=== PATIENT | female | born 1975 | race Caucasian/White ===

== ENCOUNTER 2016-04-03 17:41 | Inpatient (IN) | payer OTHER ==
[2016-04-03] MEDS ORDERED: PROMETHAZINE HCL 25 MG/ML VIAL IVP ONE (18:12)
[2016-04-03] MEDS ORDERED: DEXAMETHASONE 10 MG/ML VIAL IVP ONE (18:12)
[2016-04-03] MEDS ORDERED: KETOROLAC 30 MG/1 ML SDV IVP ONE (18:12)
[2016-04-03] MEDS ORDERED: DIHYDROERGOTAMINE 1 MG/ML AMP IVP ONE (18:13)
[2016-04-03] MEDS ORDERED: NS 1,000 ML IV ONE (18:13)
--- NOTE | 2016-04-03 18:16 | EDPHY ---
H & P Stated Complaint: Migraine - Personal History LMP (Females 10-55): Irregular Current Tetanus/Diphtheria Vaccine: Unsure Current Tetanus Diphtheria and Acellular Pertussis (TDAP): Unsure Tetanus Vaccine Date: <10 years - Medical/Surgical History Hx Asthma: No Hx Chronic Respiratory Disease: No Hx Diabetes: No Hx Cardiac Disease: No Hx Renal Disease: No Hx Cirrhosis: No Hx Alcoholism: No Hx HIV/AIDS: No Hx Splenectomy or Spleen Trauma: No Other PMH: MS;Migraines; depression, - Social History Smoking Status: Never smoked Time Seen by Provider: 04/03/16 18:01 HPI/ROS: CHIEF COMPLAINT: Migraine headache x1 week HISTORY OF PRESENT ILLNESS: 40-year-old female history of multiple sclerosis, chronic migraine headache, seen emergency department previously for similar, complaining of 1 week of intractable migraine headache. Has taken multiple doses of DHE, opiate analgesic, saw her neurologist 4 days ago received Botox injection, still with no relief of symptoms. Feels like her usual headache. Not thunderclap. Not worst headache of life. States that she typically gets relief with DHE which was previously unavailable last emergency department visit in January 2016. She would like to receive DHE and be admitted for further DHE the via IV. Currently not on Depakote PRIMARY CARE PROVIDER:primary neurologist Dr. Lisandra Miranda, [place] REVIEW OF SYSTEMS: A ten point review of systems was performed and is negative with the exception of the items mentioned in the HPI PAST MEDICAL & SURGICAL HISTORY: MS. Migraine. Depression. SOCIAL HISTORY: . Nonsmoker. No drug use. PHYSICAL EXAM (Prior to examination, patient consented to physical exam, hands were washed and my usual and customary physical exam procedures followed) 1) GENERAL: Well-developed, well-nourished, alert and oriented. Appears uncomfortable, sitting in a dark room with her eyes covered, crying 2) HEAD: Normocephalic, atraumatic 3) HEENT: Pupils equal, round, reactive to light bilaterally. Sclera anicteric. 4) NECK: Full range of motion, no meningeal signs. 5) LUNGS: Clear auscultation bilaterally, no wheezes, no rhonchi, no retractions. 6) HEART: Regular rate and rhythm, no murmur, no heave, no gallop. 7) ABDOMEN: No guarding, no rebound, no focal tenderness, 8) MUSCULOSKELETAL: Moving all extremities, no focal areas of tenderness, no obvious trauma. No peripheral edema or discoloration. 9) BACK: no midline vertebral tenderness, no fluctuance, no step-off, no obvious trauma, no visual or palpable abnormality. 10) SKIN: No rash, no petechiae. 11)NEURO: Awake, alert, and oriented to person, place and time. Answers questions appropriately. There were no obvious focal neurologic abnormalities. No cerebellar dysfunction. Normal steady gait. Upper and lower extremities bilaterally with strength 5 / 5, reflexes 2+. DIFFERENTIAL DIAGNOSIS: In no particular order, including but not limited to subarachnoid hemorrhage, migraine headache, tension headache and infectious causes such as meningitis, pharyngitis and sinusitis. T (lEma Faye) Constitutional: Initial Vital Signs Temperature (C) 37.1 C 04/03/16 17:45 Heart Rate 95 04/03/16 17:45 Respiratory Rate 14 04/03/16 17:45 Blood Pressure 133/64 H 04/03/16 17:45 O2 Sat (%) 96 04/03/16 17:45 O2 Delivery Mode Room Air Allergies/Adverse Reactions: metoclopramide HCl [From Reglan] Allergy (Verified 01/21/16 14:25) Sulfa (Sulfonamide Antibiotics) Allergy (Verified 01/21/16 14:25) Home Medications: Medication Instructions Recorded Baclofen [Baclofen 10 mg (*)] 10 mg PO TID 04/17/14 Botulinum Toxin Type A [Botox] 100 unit INJ .[id number] 04/17/14 Dihydroergotamine Mesylate 1 spray EACHNARE PRN PRN 04/17/14 [MIGRANAL] Gabapentin 600 mg PO TID 04/17/14 Topiramate [Topamax] 250 mg PO HS 04/17/14 tiZANidine HCL [Zanaflex] 4 mg PO HS 04/17/14 Cyanocobalamin [Vitamin B12 (*)] 1,000 mcg PO DAILY 03/16/15 Herbals/Supplements -Info Only 1 ea PO DAILY 03/16/15 Norethindrone AC-Eth Estradiol 1 tab PO DAILY 03/16/15 [Norethind-Eth Estrad 1-0.02 mg] Promethazine HCl 25 - 50 mg PO PRN PRN 03/16/15 Sertraline HCl [Zoloft 100mg (*)] 200 mg PO DAILY 03/16/15 Zolpidem Tartrate [Ambien 5MG (*)] 5 mg PO HS PRN 03/16/15 HYDROcodone/APAP 10/325 [Bruni 1 - 2 each PO Q4-6PRN PRN #20 tab 01/21/16 10/325] LORazepam [Ativan 1 mg (RX)] 1 mg PO TID PRN #14 tab 01/21/16 Divalproex ER [Depakote ER 250 MG 250 mg PO DAILY PRN 04/03/16 (*)] valACYclovir [Valtrex (*)] 500 mg PO DAILY 04/03/16 Medical Decision Making ED Course/Re-evaluation: 6:15 p.m.: Nonfocal neurologic exam. Old medical records reviewed. Longstanding history of migraine headaches including admission for intractable pain/status migrainosus. She specifically requests DHE. 7:10 p.m.: Re-evaluation. Complaining of continued pain after multiple medications. Discussed IV opiates which he is agreeable with. She and agree that they like to be admitted for continuous IV DHE therapy similar to February 2015 741 pm: Consultation with hospitalist Dr Temple who will admit (Elma Faye) Other Provider: The patient was evaluated and managed by the physician hospital medical assistant. I have reviewed this chart and I agree with the findings and plan of care as documented , as indicated by my signature. I am the secondary supervising physician. ( Danielle Telles) - Data Points Laboratory Results: Laboratory Results 04/03/16 17:58 04/03/16 17:58 Medications Given: Discontinued Medications Dexamethasone (Decadron Injection) 10 mg IVP EDNOW ONE Stop: 04/03/16 18:13 Last Admin: 04/03/16 18:36 Dose: 10 mg Dihydroergotamine Mesylate (Dhe) 1 mg IVP EDNOW ONE Stop: 04/03/16 18:14 Last Admin: 04/03/16 18:37 Dose: 1 mg Diphenhydramine HCl (Benadryl Injection) 25 mg IVP EDNOW ONE Stop: 04/03/16 18:43 Last Admin: 04/03/16 18:45 Dose: 25 mg Hydromorphone HCl (Dilaudid) 1 mg IVP EDNOW ONE Stop: 04/03/16 19:07 Last Admin: 04/03/16 19:27 Dose: 1 mg Sodium Chloride (Ns) 1,000 mls @ 0 mls/hr IV ONCE ONE PRN Reason: Wide Open Stop: 04/03/16 18:14 Last Admin: 04/03/16 18:38 Dose: 1,000 mls Ketorolac Tromethamine (Toradol) 30 mg IVP EDNOW ONE Stop: 04/03/16 18:13 Last Admin: 04/03/16 18:37 Dose: 30 mg Lorazepam (Ativan Injection) 1 mg IVP EDNOW ONE Stop: 04/03/16 18:29 Last Admin: 04/03/16 18:38 Dose: 1 mg Promethazine HCl (Phenergan Injection) 25 mg IVP EDNOW ONE Stop: 04/03/16 18:13 Last Admin: 04/03/16 18:37 Dose: 25 mg Departure - Departure Disposition: [facility] Acute Clinical Impression: Headache, migraine Condition: Fair
[2016-04-03 18:17] LABS: % IMMATURE GRANULYOCYTES 0.3 % (0.0-1.1); ABSOLUTE IMMATURE GRANULOCYTES 0.02 10^3/uL (0.00-0.10); ADD DIFF? NO; ADD MORPH? NO; ADD SCAN? NO; ATYPICAL LYMPHOCYTE FLAG 0 (0-99); FRAGMENT RBC FLAG 0 (0-99); HEMATOCRIT 42.4 % (38.0-47.0); HEMOGLOBIN 14.8 g/dL (12.6-16.3); LEFT SHIFT FLG 0 (0-99); LIPEMIA HEMOLYSIS FLAG 90 (0-99); MEAN CELL HEMOGLOBIN 30.3 pg (27.9-34.1); MEAN CELL HEMOGLOBIN CONCENTR. 34.9 g/dL (32.4-36.7); MEAN CELL VOLUME 86.7 fL (81.5-99.8); MEAN PLATELET VOLUME 10.4 fL (8.7-11.7); PLATELET CLUMPS FLAG 10 (0-99); PLATELET COUNT 252 10^3/uL (150-400); RED BLOOD CELL COUNT 4.89 10^6/uL (4.18-5.33); RED CELL DISTRIBUTION WIDTH 13.3 % (11.5-15.2)
[2016-04-03 18:22] LABS: ANION GAP 12 mEq/L (8-16); CALCIUM 8.9 mg/dL (8.5-10.4); CARBON DIOXIDE 19 mEq/l (22-31); CHLORIDE 111 mEq/L (97-110); CREATININE 0.7 mg/dL (0.6-1.0); GLOMERULAR FILTRATION RATE > 60; GLUCOSE 107 mg/dL (70-100); POTASSIUM 3.9 mEq/L (3.5-5.2); SODIUM 142 mEq/L (134-144)
[2016-04-03] MEDS ORDERED: LORazepam 2 MG/ML INJ IVP ONE (18:28)
[2016-04-03] MEDS ORDERED: LORazepam 2 MG/ML INJ ONE (18:30)
[2016-04-03] MEDS ORDERED: HYDROmorphONE/DILAUDID 1 MG/ML SYR IVP ONE (19:06)
[2016-04-03] MEDS ORDERED: ACETAMINOPHEN 325 MG TAB PO PRN (20:08)
[2016-04-03] MEDS ORDERED: ZOLPIDEM TARTRATE 5 MG TAB PO PRN (20:09)
[2016-04-03] MEDS ORDERED: DIVALPROEX ER 250 MG TAB PO PRN (20:09)
[2016-04-03] MEDS ORDERED: oxyCODONE IR 5 MG TAB PO PRN (20:09)
[2016-04-03] MEDS ORDERED: HYDROmorphONE/DILAUDID 2 MG/ML SYR IVP PRN (20:09)
--- NOTE | 2016-04-03 20:42 | GHP ---
[f rep st] HISTORY AND PHYSICAL DATE OF ADMISSION: 04/03/2016 CHIEF COMPLAINT: Headache. HISTORY OF PRESENT ILLNESS: This is a 40-year-old female with history of multiple sclerosis, chronic migraine headaches, who has been hospitalized in the past for intractable migraine. The patient is followed by Dr. Miranda, who is a neurologist in [place]. The patient tells me ngoc t over the past week she has had a migraine headache that has waxed and waned. She came in today sin ce the headache has worsened and described it as 8.5 out of 10 on initial presentation to the emergen cy department this evening. The pain is described as sharp and in her neck, posterior head and moves anteriorly. In the emergency department, she was given dihydroergotamine, dexamethasone, Dilaudid, Phenergan, and Toradol, which decreased the headache to a 3/10. The headache is associated with phot o and phonophobia. Some smells make it worse as well. She says her leg feels a little weak. PAST MEDICAL HISTORY: 1. Migraine headaches, with hospitalization in February 2015 for intractable migraine that responded to DHE treatment. 2. Multiple sclerosis. 3. Depression. PAST SURGICAL HISTORY: Right medial nerve reconstruction. MEDICATIONS: Reviewed. Refer to [facility] for details. ALLERGIES: Sulfa antibiotics and Reglan. SOCIAL HISTORY: The patient is , has 3 kids and lives in [place] [place]. She denies any alcoh ol, tobacco or illicit drug use. FAMILY HISTORY: Reviewed and noncontributory. Father had a massive stroke in his late 50s. REVIEW OF SYSTEMS: Comprehensive 10-point review of systems was done and was negative except for as mentioned in the HPI. PHYSICAL EXAM: VITAL SIGNS: Blood pressure 132/69, pulse 86, respiratory rate 16, O2 saturation 94% on room air. Temperature afebrile. GENERAL: No acute distress. HEENT: Head is normocephalic, at raumatic. Eyes are PERRLA. Sclerae anicteric. Mouth: Moist mucous membranes. NECK: Supple. No meningismus. CARDIOVASCULAR: S1, S2. No murmurs, rubs, clicks, gallops, or JVD. No lower extremit y edema. PULMONARY: Lungs are clear. No wheezes, rales, or rhonchi. ABDOMEN: Soft, nontender, no ndistended. No guarding or rebound tenderness. Normoactive bowel sounds. EXTREMITIES: No clubbing or cyanosis. NEURO: Cranial nerves 2-12 grossly intact. There is no pronator drift. Muscle stren gth 5/5 bilateral upper extremity flexion, extension, diesel technician strength. Muscle strength 5/5 bilateral l ower extremity flexion, extension at the hip and at the foot. DTRs are 2+ and symmetric at the aranda la. SKIN: Clear. No rashes. DIAGNOSTICS: WBC is 5.78, hemoglobin 14.8, hematocrit 42.4, platelets 252. Sodium 142, potassium 3. 9, chloride 111, CO2 of 19, BUN 7, creatinine 0.7, glucose 107, beta HCG negative. Valproic acid was undetectable. ASSESSMENT AND PLAN: This is a 40-year-old female with history of multiple sclerosis presenting with intractable migraine/status migrainosus. PLAN: The patient will be admitted to the hospital where she will be treated supportively for her he adache with IV fluids, antiemetics, IV pain medications. I did try to contact her treating neurologi st, Dr. Lisandra Miranda, and have left a message for her. I will plan on continuing the dihydroergotamine at a dose of 1 mg IV q.8 since this appears to have worked for her in the past. I will have our rona rologist consult in the morning. I suspect that the patient's headache will require hospitalization through 2 midnights; and therefore , will admit her to inpatient status. She is at low risk for VTE and will recommend SCDs and early a mbulation. /[id number]/MODL
[2016-04-03] MEDS: TOPIRAMATE 100 MG TAB PO SCH (21:32)
[2016-04-03] MEDS: PROMETHAZINE HCL 25 MG/ML VIAL IVP PRN (21:32)
[2016-04-03] MEDS: GABAPENTIN 300 MG CAP PO SCH (21:37)
[2016-04-03] MEDS: BACLOFEN 10 MG TAB PO SCH (21:37)
[2016-04-03] MEDS: D5W 1/2 NS W/ 20 KCl/L 1,000 ML IV SCH (22:28)
[2016-04-03] MEDS: LORazepam 1 MG TAB PO PRN (22:28)
[2016-04-03] MEDS: KETOROLAC 30 MG/1 ML SDV IVP PRN (22:28)
[2016-04-03 22:49] LABS: COLOR PALE YELLOW; LEUKOCYTE ESTERASE,URINE NEGATIVE (NEGATIVE); NITRITE,URINE NEGATIVE (NEGATIVE)
[2016-04-04] MEDS: PROMETHAZINE HCL 25 MG/ML VIAL IVP PRN ×3 (02:02→18:31)
[2016-04-04] MEDS: DIHYDROERGOTAMINE 1 MG/ML AMP IVP SCH ×3 (02:11→18:44)
[2016-04-04] MEDS: LORazepam 1 MG TAB PO PRN ×2 (04:46→20:21)
[2016-04-04] MEDS: GABAPENTIN 300 MG CAP PO SCH ×3 (09:09→20:22)
[2016-04-04] MEDS: SERTRALINE HCL 100 MG TAB PO SCH (09:09)
[2016-04-04] MEDS: BACLOFEN 10 MG TAB PO SCH ×3 (09:09→20:22)
[2016-04-04] MEDS: valACYclovir 500 MG TAB PO SCH (09:09)
[2016-04-04] MEDS: D5W 1/2 NS W/ 20 KCl/L 1,000 ML IV SCH (09:13)
[2016-04-04] MEDS: NORETHINDRONE AC ETH ESTRADIOL PO SCH (09:19)
[2016-04-04 09:35] VITALS: RESP 16
[2016-04-04] MEDS: KETOROLAC 30 MG/1 ML SDV IVP PRN ×2 (10:38→18:31)
[2016-04-04] MEDS: ONDANSETRON 4 MG/2 ML VIAL IVP PRN (11:25)
--- NOTE | 2016-04-04 12:35 | HOSPPROG ---
Hospitalist Progress Note Assessment/Plan: 40 yo with h/o migraine headaches and MS; presents with migraine headache. Has responded to DHE in the past. Patient new to me today -migraine headache; improving on DHE, now 4-5/10 for 8-12/27 -MS: stable Subjective: headache is improving. No nausea; cannot sleep; Objective: Vital Signs Temp Pulse Resp BP Pulse Ox 36.6 C 70 16 126/67 H 99 04/04/16 09:10 04/04/16 09:10 04/04/16 09:10 04/04/16 09:10 04/04/16 09:10 04/03/16 04/04/16 04/05/16 05:59 05:59 05:59 Intake Total 1999 Balance 1999 - Time Spent With Patient Time Spent with Patient: greater than 35 minutes Time Spent with Patient: Greater than 35 minutes spent on this patients care, greater than 50% of time spent counseling, educating, and coordinating care regarding the above mentioned plan. - Physical Exam Eyes: PERRL Ears, Nose, Mouth, Throat: moist mucous membranes, hearing normal Cardiovascular: regular rate and rhythym, no murmur, rub, or gallop Respiratory: no respiratory distress, no rales or rhonchi, clear to auscultation Genitourinary: no bladder fullness Skin: warm Musculoskeletal: full muscle strength Neurologic: AAOx3, CN II-XII Intact, other (no focal weakness; photophobia present, cannot sleep) Psychiatric: interacting appropriately ICD10 Worksheet Patient Problems: Problems Problem Status Diagnosed Headache, migraine Acute Migraine headache Acute
[2016-04-04] MEDS ORDERED: ZOLPIDEM TARTRATE 5 MG TAB PO PRN (12:38)
--- NOTE | 2016-04-04 13:58 | GCON ---
[f rep st] CONSULTATION REFERRING PHYSICIAN: Anjum Temple DO HISTORY OF PRESENT ILLNESS: The patient is a 40-year-old woman who has a prior history of multiple s clerosis and used to be followed in this practice for many years by Dr. Mccarty. She then saw Dr. Leonides lange about 1 year ago, and has subsequently been under the care of Dr. Lisandra Miranda over the last year. The patient has relapsing remitting multiple sclerosis and has failed multiple therapies or had poor tolerance, and is currently on Lemtrada. She has just initiated this. She says she is under rather high stress right now and has been dealing with headaches. She says for the last 10 years she has avendano d some headache every day and can only imagine just a few days during that time where she has not had a headache. Her baseline headache can be 2 or 3/10. However, she has had significant flare-up of h eadache over the last several weeks, and has reported to me hospitalizations in the past with IV DHE and high success by using a combination of Phenergan, Toradol, and Benadryl. She specifically was ad mitted because of the intractable nature of her headaches. She says she has been speaking to Dr. Doss on as well, and they were working through antidepressant medications, but the patient lives here, whi ch is why she came to our facility for the headache problem. In any case, she was admitted last even ing and has been started on DHE, but she has not received any Benadryl dosing, and she wants that antwan y much because of the strong efficacy she has had before. She says she needs her headache to get kartik n to 2 or 3/10 before she will be back to her baseline, and is currently at about 8/10. She denies a ny other new neurologic symptoms. Her multiple sclerosis is significant, but no acute deterioration. PAST MEDICAL HISTORY: As outlined above, and she also has history of depression with the intractable migraine headaches. She has had some occipital nerve blocks to try to help headaches. ALLERGIES: Sulfa, antibiotics, and Reglan. FAMILY HISTORY: Noncontributory, except father had a stroke in his late 50s. She is . She h as 3 children. She denies alcohol, smoking or drug use. REVIEW OF SYSTEMS: Unremarkable, except for that noted above. CURRENT MEDICATIONS: At home, were Valtrex, Botox intermittently for migraine prevention, baclofen, Depakote, Migranal (she is having some trouble getting that, but is supposed to get back on that due to insurance issues), B12, estradiol, lorazepam as needed, hydrocodone as needed, gabapentin 600 mg 3 times a day, Zoloft 200 mg daily, Zanaflex, Ambien, Topamax 250 mg at night. PHYSICAL EXAMINATION: VITAL SIGNS: Blood pressure 126/67, pulse of 70, respirations 16, temperature 36.6. GENERAL: She is well developed, in no acute distress. She is in a dark room. CARDIAC: Reg ular rate and rhythm. No murmur. She is alert, attentive, oriented, and expressing logical concern about her headaches and the frustration over the pain, and just hoping to get relief as soon as possi ble. NEUROLOGIC: Pupils 3 mm and reactive. Extraocular movements are intact. No facial asymmetry. No focal weakness in the upper extremities, although the left upper extremity might have been a lit tle weak relative to the right. Sensation preserved. IMPRESSION: The patient has relapsing remitting multiple sclerosis, which has been recently followed by Dr. Miranda in [place]. The patient recently started the new medication, Lemtrada. The acute hospitalization and the reason for being evaluated today, is related to intractable migraine headach e. She has a chronic daily headache syndrome with no complete headache relief for 10 years and frequ ent exacerbations of headache leading to hospitalizations and needing intravenous therapy with DHE be ing most successful in combination with Toradol, Phenergan, and Benadryl. I am happy to add the [place] dryl 25 mg IV every 8 hours, in addition to the other medications. She will continue the DHE as need ed, up to a maximum of 6 doses per week, and will be able to leave the hospital once her headaches ar e improved to the point where she is back to her baseline. She will then continue her regular follow up with Dr. Miranda. /[id number]/MODL
[2016-04-04] MEDS: TOPIRAMATE 100 MG TAB PO SCH (20:19)
[2016-04-05] MEDS: PROMETHAZINE HCL 25 MG/ML VIAL IVP PRN ×3 (02:55→18:29)
[2016-04-05] MEDS: KETOROLAC 30 MG/1 ML SDV IVP PRN ×3 (02:56→18:30)
[2016-04-05] MEDS: DIHYDROERGOTAMINE 1 MG/ML AMP IVP SCH ×3 (02:56→18:30)
[2016-04-05] MEDS: LORazepam 1 MG TAB PO PRN (03:04)
[2016-04-05] MEDS: ONDANSETRON 4 MG/2 ML VIAL IVP PRN ×3 (03:26→18:56)
[2016-04-05] MEDS: GABAPENTIN 300 MG CAP PO SCH ×3 (08:56→23:55)
[2016-04-05] MEDS: SERTRALINE HCL 100 MG TAB PO SCH (08:56)
[2016-04-05] MEDS: BACLOFEN 10 MG TAB PO SCH ×3 (08:56→23:56)
[2016-04-05] MEDS: valACYclovir 500 MG TAB PO SCH (08:56)
[2016-04-05] MEDS: NORETHINDRONE AC ETH ESTRADIOL PO SCH (09:16)
--- NOTE | 2016-04-05 11:11 | HOSPPROG ---
Hospitalist Progress Note Assessment/Plan: ASSESSMENT/PLAN: # migraine - will continue treatment including DHE 1 mg q.8 hours; discussed with Dr. Bell who is comfortable going over the recommended dosage - continue other supportive care including Toradol, Depakote, topiramate, tizanidine, IV Dilaudid, oral oxycodone, phenergan, benadryl # MS - stable SUBJECTIVE: Tearful, still has a headache; slightly better than yesterday OBJECTIVE: Vitals reviewed Comfortable, no acute distress Objective: Vital Signs Temp Pulse Resp BP Pulse Ox 36.7 C 90 16 115/60 97 04/05/16 08:40 04/05/16 08:40 04/05/16 08:40 04/05/16 08:40 04/05/16 08:40 04/04/16 04/05/16 04/06/16 05:59 05:59 05:59 Intake Total 2000 300 Balance 2000 300 - Time Spent With Patient Time Spent with Patient: greater than 25 minutes Time Spent with Patient: Greater than 25 minutes spent on this patients care, greater than 50% of time spent counseling, educating, and coordinating care regarding the above mentioned plan. ICD10 Worksheet Patient Problems: Problems Problem Status Diagnosed Headache, migraine Acute Migraine headache Acute
[2016-04-05] MEDS ORDERED: METHOCARBAMOL 1,000 MG in NS 50 ML IVP PRN (16:27)
[2016-04-05] MEDS ORDERED: METHOCARBAMOL 1,000 MG in NS 50 ML IV PRN (18:13)
[2016-04-05] MEDS: TOPIRAMATE 100 MG TAB PO SCH (23:55)
[2016-04-06] MEDS: LORazepam 1 MG TAB PO PRN
[2016-04-06 08:45] VITALS: BP 100/52; PULSE 73; TEMP 98.3; O2SAT 99
[2016-04-06] MEDS: KETOROLAC 30 MG/1 ML SDV IVP PRN (09:21)
[2016-04-06] MEDS: GABAPENTIN 300 MG CAP PO SCH (09:22)
[2016-04-06] MEDS: valACYclovir 500 MG TAB PO SCH (09:22)
[2016-04-06] MEDS: BACLOFEN 10 MG TAB PO SCH (09:22)
[2016-04-06] MEDS: SERTRALINE HCL 100 MG TAB PO SCH (09:22)
[2016-04-06] MEDS: NORETHINDRONE AC ETH ESTRADIOL PO SCH (09:23)
--- NOTE | 2016-04-06 09:57 | GDS ---
[f rep st] DISCHARGE SUMMARY DIAGNOSES: 1. Uncontrolled migraine. 2. Multiple sclerosis. HOSPITAL COURSE: A 40-year-old female with long history of migraines with chronic daily headaches, p resents with worsening of her symptoms. She described her pain as 8 to 9/10, persistent on admission . She is on multiple suppressive and abortive therapies at home. She has had success with DHE in e past, thus she was started on this. She received 1 g q.8 for a total of 6 doses of DHE. On discha rge, her pain is down to 4/10. Normally her pain is slightly better than this. She is comfortable w ith being discharged, tolerating food. She has all the medications that she needs at home. She has followup with Dr. Lisandra Miranda. She is considering going to a specialty headache clinic. I discussed this with Dr. Bell on the day of discharge. BILLING: I spent spent less than 30 minutes on the day of discharge coordinating care /[id number]/PABLOL
== END 2016-04-06 13:30 | disposition home or self-care (01) | DRG 103 ==
LOC: F1N 20:50
PROVIDERS: ADMIT Family Medicine; ATTEND Student in an Organized Health Care Education/Training Program
DX: G43.001 Migraine without aura, not intractable, with status migrainosus (principal); G35 Multiple sclerosis; F32.9 Major depressive disorder, single episode, unspecified
CPT/HCPCS: 96374; J1110; J1170; J1885; J2405; J2550; J2800

== ENCOUNTER → 2016-07-05 | Outpatient (CLI) | payer OTHER ==
[~2016-07-05] MED LIST: GADOBUTROL 10 ML VIAL IVP ONE
== END ==
LOC: FIMAGING 14:23
PROVIDERS: ATTEND Psychiatry & Neurology Neurology
DX: G35 Multiple sclerosis (principal)
CPT/HCPCS: A9585

== ENCOUNTER 2016-07-11 09:57 | Emergency (ER) | payer OTHER ==
--- NOTE | 2016-07-11 11:39 | EDPHY ---
H & P Stated Complaint: hx ms/increased l leg and hip pain since monday/may be flare up Time Seen by Provider: 07/11/16 11:38 HPI/ROS: HPI: 41-year-old female presents to emergency department with chief concern left low back and left hip pain that is 9/10 radiates down lateral aspect of left leg almost to the knee, onset suddenly 2 nights ago without known aggravating activity. Denies fever, chills, myalgias, dizziness, shortness of breath, chest pain nausea or vomiting. No urinary symptoms, no flank pain. No incontinence of bowel or bladder. Has had low back pain in the past when she was . Worse with ambulation, better with rest. Taking ibuprofen and [place] that she has at home with some improvement. Has a recent history of bronchial pneumonia from which she is recovering. Has a history of MS. Has been in touch with her neurologist Dr. Lisandra Miranda who put her on a Medrol Dosepak. ROS:10 point review of systems is negative other than as stated in HPI Source: Patient - Personal History LMP (Females 10-55): 22-28 Days Ago Current Tetanus/Diphtheria Vaccine: Yes Tetanus Vaccine Date: <10 years - Medical/Surgical History Hx Asthma: No Hx Chronic Respiratory Disease: No Hx Diabetes: No Hx Cardiac Disease: No Hx Renal Disease: No Hx Cirrhosis: No Hx Alcoholism: No Hx HIV/AIDS: No Hx Splenectomy or Spleen Trauma: No Other PMH: MS;Migraines; depression, - Social History Smoking Status: Never smoked - Physical Exam Exam: Vital signs stable, reviewed by me Constitutional: Alert, calm, cooperative. No acute distress. HEENT: Head normocephalic. PERRLA, EOMI. No pallor or injection. TMs pearly- roy without bulging or retraction. Nasal mucosa pink and moist. Pharynx without redness or evidence of tonsillar exudates. Neck: Supple, nontender. No midline tenderness. Respiratory: Breathing unlabored. Cardiovascular: Heart rate regular. S1-S2. DP/PT pulses 2+ bilaterally. Gastrointestinal: Abdomen soft, nontender. Bowel sounds normoactive x4 quadrants. : No suprapubic tenderness or CVA tenderness. Neuro: Patellar and Achilles DTRs 2+ bilaterally. Strength 5+ in all extremities. No point tenderness to palpation of thoracic or lumbar spine. Left and right paraspinous muscles without tenderness to palpation. No evidence of radiculopathy on straight leg raise bilaterally. Sensation intact to soft and pinprick in all regions of both legs and feet bilaterally. Musculoskeletal: Left hip with the full extension, flexion, full internal rotation, external rotation without significant discomfort. Ambulates without difficulty. Constitutional: Initial Vital Signs Temperature (C) 36.5 C 07/11/16 10:08 Heart Rate 110 H 07/11/16 10:08 Respiratory Rate 22 H 07/11/16 10:08 Blood Pressure 123/79 H 07/11/16 10:08 O2 Sat (%) 97 07/11/16 10:08 O2 Delivery Mode Room Air Allergies/Adverse Reactions: acetaminophen [From Percocet] Allergy (Verified 07/11/16 10:06) metoclopramide HCl [From Reglan] Allergy (Verified 07/11/16 10:06) oxycodone [From Percocet] Allergy (Verified 07/11/16 10:06) Sulfa (Sulfonamide Antibiotics) Allergy (Verified 07/11/16 10:06) Home Medications: Medication Instructions Recorded Baclofen [Baclofen 10 mg (*)] 10 mg PO TID 04/17/14 Botulinum Toxin Type A [Botox] 100 unit INJ [id number] 04/17/14 Dihydroergotamine Mesylate 1 spray EACHNARE PRN PRN 04/17/14 [MIGRANAL] Gabapentin 600 mg PO TID 04/17/14 Topiramate [Topamax] 250 mg PO HS 04/17/14 tiZANidine HCL [Zanaflex] 4 mg PO HS 04/17/14 Cyanocobalamin [Vitamin B12 (*)] 1,000 mcg PO DAILY 03/16/15 Herbals/Supplements -Info Only 1 ea PO DAILY 03/16/15 Norethindrone AC-Eth Estradiol 1 tab PO DAILY 03/16/15 [Norethind-Eth Estrad 1-0.02 mg] Promethazine HCl 25 - 50 mg PO PRN PRN 03/16/15 Sertraline HCl [Zoloft 100mg (*)] 200 mg PO DAILY 03/16/15 Zolpidem Tartrate [Ambien 5MG (*)] 5 mg PO HS PRN 03/16/15 HYDROcodone/APAP 10/325 [[place] 1 - 2 each PO Q4-6PRN PRN #20 tab 01/21/16 10/325 (*)] LORazepam [Ativan (*)] 1 mg PO TID PRN #14 tab 01/21/16 valACYclovir [Valtrex (*)] 500 mg PO DAILY 04/03/16 Medrol Dose Humberto 07/11/16 Methergine 07/11/16 Medical Decision Making - Diagnostics Imaging Results: Imaging Impressions Hip X-Ray 07/11/16 11:31 Impression: Negative. No explanation for pain. Lumbar Spine X-Ray 07/11/16 11:31 Impression: Negative. No acute process. Imaging: I viewed and interpreted images myself ED Course/Re-evaluation: 41-year-old female presents to ED with sudden onset of left low back, left hip pain with radiation into the left lateral leg. X-ray of the lumbar spine and left hip are negative. She is able to perform full range of motion without significant discomfort. Neurovascular status intact. White count 33501. She has no systemic symptoms. Vitals are stable. She is afebrile. I will have her follow up with primary care tomorrow for recheck. She agrees to do so. I think an infectious source is unlikely and her symptoms represent sciatica. She has been counseled to return should her symptoms worsen. She agrees to do so. Differential Diagnosis: Differential diagnosis includes but is not limited to infection, MS exacerbation , musculoskeletal pain, UTI - Data Points Laboratory Results: Laboratory Results 07/11/16 12:46 07/11/16 12:46 WBC 14.80 10^3/uL H 10^3/uL (3.80-9.50) RBC 5.31 10^6/uL 10^6/uL (4.18-5.33) Hgb 15.2 g/dL g/dL (12.6-16.3) Hct 44.1 % % (38.0-47.0) MCV 83.1 fL fL (81.5-99.8) MCH 28.6 pg pg (27.9-34.1) MCHC 34.5 g/dL g/dL (32.4-36.7) RDW 12.8 % % (11.5-15.2) Plt Count 240 10^3/uL 10^3/uL (150-400) MPV 10.7 fL fL (8.7-11.7) Neut % (Auto) 91.4 % H % (39.3-74.2) Lymph % (Auto) 4.9 % L % (15.0-45.0) [place] % (Auto) 3.0 % L % (4.5-13.0) Eos % (Auto) 0.1 % L % (0.6-7.6) Baso % (Auto) 0.3 % % (0.3-1.7) Nucleat RBC Rel Count 0.0 % % (0.0-0.2) Absolute Neuts (auto) 13.52 10^3/uL H 10^3/uL (1.70-6.50) Absolute Lymphs (auto) 0.72 10^3/uL L 10^3/uL (1.00-3.00) Absolute Monos (auto) 0.45 10^3/uL 10^3/uL (0.30-0.80) Absolute Eos (auto) 0.02 10^3/uL L 10^3/uL (0.03-0.40) Absolute Basos (auto) 0.04 10^3/uL 10^3/uL (0.02-0.10) Absolute Nucleated RBC 0.00 10^3/uL 10^3/uL (0-0.01) Immature Gran % 0.3 % % (0.0-1.1) Immature Gran # 0.05 10^3/uL 10^3/uL (0.00-0.10) Departure - Departure Disposition: Home, Routine, Self-Care Clinical Impression: Left hip pain Low back pain Qualifiers: Chronicity: acute Back pain laterality: left Sciatica presence: with sciatica Condition: Good Instructions: Acute Low Back Pain (ED), Lumbar Radiculopathy (ED) Additional Instructions: Plan: Please follow up with primary care tomorrow for recheck without fail--When you call to schedule appointment, please let the office know you are an "ER follow up" appointment" You may use 600 mg of ibuprofen every 6 hours for fever, inflammation, or pain. Always take ibuprofen with food and stay well hydrated while taking. Do not exceed the maximum allowable dose in a 24 hour period which is 2400 mg. May use the [place] you have at home 1-2 tabs every 6 hours as needed--Never drink or drive while taking this medication. This medication impairs decision making capacity so do not work or sign important documents while taking. This medication its constipating so drink plenty of fluids and consider an over-the- counter stool softener such as docusate sodium (Colace) while taking this medication. This medication has addictive properties. You should use the least amount for the shortest amount of time. [facility] ED and Urgent Care do not refill narcotic pain medication prescriptions. This is a hospital policy. You will need to follow up as indicated for recheck for further narcotic refills. If he develops fever, vomiting, urinary symptoms, return promptly for recheck, otherwise follow up as discussed Referrals: Harika Castro MD [Primary Care Provider] - As per Instructions
[2016-07-11 12:52] LABS: % IMMATURE GRANULYOCYTES 0.3 % (0.0-1.1); ABSOLUTE IMMATURE GRANULOCYTES 0.05 10^3/uL (0.00-0.10); ADD DIFF? NO; ADD MORPH? NO; ADD SCAN? NO; ATYPICAL LYMPHOCYTE FLAG 0 (0-99); FRAGMENT RBC FLAG 0 (0-99); HEMATOCRIT 44.1 % (38.0-47.0); HEMOGLOBIN 15.2 g/dL (12.6-16.3); LEFT SHIFT FLG 0 (0-99); LIPEMIA HEMOLYSIS FLAG 90 (0-99); MEAN CELL HEMOGLOBIN 28.6 pg (27.9-34.1); MEAN CELL HEMOGLOBIN CONCENTR. 34.5 g/dL (32.4-36.7); MEAN CELL VOLUME 83.1 fL (81.5-99.8); MEAN PLATELET VOLUME 10.7 fL (8.7-11.7); PLATELET CLUMPS FLAG 0 (0-99); PLATELET COUNT 240 10^3/uL (150-400); RED BLOOD CELL COUNT 5.31 10^6/uL (4.18-5.33); RED CELL DISTRIBUTION WIDTH 12.8 % (11.5-15.2)
[2016-07-11 13:24] VITALS: BP 117/72; PULSE 68; RESP 16; TEMP 98.6; O2SAT 98
== END 2016-07-11 13:23 | disposition home or self-care (01) ==
DX: M25.552 Pain in left hip (principal); M54.42 Lumbago with sciatica, left side

== ENCOUNTER 2016-08-19 23:17 | Emergency (ER) | payer OTHER ==
[2016-08-19 23:25] VITALS: TEMP 98.2
--- NOTE | 2016-08-19 23:30 | EDPHY ---
H & P Stated Complaint: chest pain , palpitations HPI/ROS: HPI CHIEF COMPLAINT: Palpitation HISTORY OF PRESENT ILLNESS: This patient very pleasant 41-year-old female she has significant past medical history for MS and migraine headaches, she presents emergency room she states for the past 3 days she has been noticing palpitations or very strong beating in her chest. She states this evening around 630 or 7 o'clock she felt her heart going to an irregular pattern. Different from her palpitations over the past 3 days. She states it felt like it was "flip-flopping in her chest" she also tells me that when she feels her palpitations her heart feels like it is pulsating very hard she gets discomfort with this. She also tells me that when she takes deep breath in she gets a sharp pain in her chest. She also tells me that she has some pain in her chest as well. She denies any new medications. She does get chemotherapy for MS Amy, last dose was on . She developed palpitations 3 days ago or on the . She denies nausea, diaphoresis, significant shortness of breath. Past Medical History: MS, migraine headaches Past Surgical History: Right wrist surgery Social History: Denies daily use of drugs alcohol tobacco products Family History: Noncontributory ROS REVIEW OF SYSTEMS: A comprehensive 10 point review of systems is otherwise negative aside from elements mentioned in the history of present illness. Exam Constitutional appears well nontoxic, triage nursing summary reviewed, vital signs reviewed, awake/alert. (tachycardia) Eyes normal conjunctivae and sclera, EOMI, PERRLA. HENT normal inspection, atraumatic, moist mucus membranes, no epistaxis, neck supple/ no meningismus, no raccoon eyes. Respiratory clear to auscultation bilaterally, normal breath sounds, no respiratory distress, no wheezing. Cardiovascular Tachycardia, regular rhythm, no murmur, no edema, distal pulses normal. Gastrointestinal soft, non-tender, no rebound, no guarding, normal bowel sounds, no distension, no pulsatile mass. Genitourinary no CVA tenderness. Musculoskeletal no midline vertebral tenderness, full range of motion, no calf swelling, no tenderness of extremities, no meningismus, good pulses, neurovascularly intact. Skin pink, warm, & dry, no rash, skin atraumatic. Neurologic awake, alert and oriented x 3, AAOx3, moves all 4 extremities equally, motor intact, sensory intact, CN II-XII intact, normal cerebellar, normal vision, normal speech. Psychiatric normal mood/affect. Heme/Lymph/Immune no lymphadenopathy. Differential diagnosis includes but is not limited to: Cardiac arrhythmia, palpitations from medication side effect, ACS, atypical chest pain, pneumothorax , pneumonia, pulmonary embolism, aortic dissection, congestive heart failure, tumor, musculoskeletal pain, esophageal pain, GERD, peptic ulcer disease, pancreatitis Medical Decision Making: Plan for this patient IV establishment, check blood work, troponin, D-dimer, EKG, chest x-ray electrolytes and TSH. Re-evaluation: EKG interpretation by me on record in [employer] system. Impression time of EKG 2336, this is sinus tachycardia rate of 106 adult appreciate any acute ischemia specifically no ST elevation or significant ST depression there appears to be a intraventricular conduction delay slightly noted in V1 V2, right bundle-branch block morphology. No old EKGs to compare to. [place]: 1% to 10%: Can Cause the Following: Cardiovascular: Flushing (10%), chest discomfort (7% to 8%), tachycardia (6% to 8%), peripheral edema (5%), palpitations (4%), bradycardia (3%), hypotension (3% ), chest pain (2%), cold extremities (1%) 0200AM: Re-examination at this time patient is resting comfortably. Current vitals heart rate 89, pulse ox 96%, blood pressure 122/76. Blood work reviewed: Shows negative D-dimer, TSH is noted to be low, indicating hyperthyroidism, this could cause palpitations and tachycardia, it is also noted on her BMP showed a low bicarb. Plan for this patient she is doing well with a nonischemic EKG a normal troponin normal D-dimer an x-ray that shows bronchitis however clinically on exam she is not coughing or wheezing. I will plan to repeat her EKG and troponin at 4 hours in ER. 0406AM: EKG repeat EKG time of EKG 4 1:00 a.m., sinus rhythm rate of 89, unchanged from previous EKG intraventricular conduction delay present. Early right bundle-branch block present unchanged from previous EKG. No acute ischemia appreciated on this EKG. Repeat troponin negative. Patient has no chest pain or shortness of breath this time resting comfortably. Agreeable for discharge. Strict return precautions given. Source: Patient, Family - Personal History LMP (Females 10-55): Irregular Current Tetanus Diphtheria and Acellular Pertussis (TDAP): Yes Tetanus Vaccine Date: <10 years - Medical/Surgical History Hx Asthma: No Hx Chronic Respiratory Disease: No Hx Diabetes: No Hx Cardiac Disease: No Hx Renal Disease: No Hx Cirrhosis: No Hx Alcoholism: No Hx HIV/AIDS: No Hx Splenectomy or Spleen Trauma: No Other PMH: MS;Migraines; depression, - Social History Smoking Status: Never smoked Constitutional: Initial Vital Signs Temperature (C) 36.8 C 08/19/16 23:20 Heart Rate 122 H 08/19/16 23:20 Respiratory Rate 16 08/19/16 23:20 Blood Pressure 137/80 H 08/19/16 23:20 O2 Sat (%) 96 08/19/16 23:20 O2 Delivery Mode Room Air Allergies/Adverse Reactions: acetaminophen [From Percocet] Allergy (Verified 07/11/16 10:06) metoclopramide HCl [From Reglan] Allergy (Verified 07/11/16 10:06) oxycodone [From Percocet] Allergy (Verified 07/11/16 10:06) Sulfa (Sulfonamide Antibiotics) Allergy (Verified 07/11/16 10:06) Home Medications: Medication Instructions Recorded Baclofen [Baclofen 10 mg (*)] 10 mg PO TID 04/17/14 Botulinum Toxin Type A [Botox] 100 unit INJ [id number] 04/17/14 Dihydroergotamine Mesylate 1 spray EACHNARE PRN PRN 04/17/14 [MIGRANAL] Gabapentin 600 mg PO TID 04/17/14 Topiramate [Topamax] 250 mg PO HS 04/17/14 tiZANidine HCL [Zanaflex] 4 mg PO HS 04/17/14 Cyanocobalamin [Vitamin B12 (*)] 1,000 mcg PO DAILY 03/16/15 Herbals/Supplements -Info Only 1 ea PO DAILY 03/16/15 Norethindrone AC-Eth Estradiol 1 tab PO DAILY 03/16/15 [Norethind-Eth Estrad 1-0.02 mg] Promethazine HCl 25 - 50 mg PO PRN PRN 03/16/15 Sertraline HCl [Zoloft 100mg (*)] 200 mg PO DAILY 03/16/15 Zolpidem Tartrate [Ambien 5MG (*)] 5 mg PO HS PRN 03/16/15 HYDROcodone/APAP 10325 [[place] 1 - 2 each PO Q4-6PRN PRN #20 tab 01/21/16 10325 (*)] LORazepam [Ativan (*)] 1 mg PO TID PRN #14 tab 01/21/16 valACYclovir [Valtrex (*)] 500 mg PO DAILY 04/03/16 Medrol Dose Humberto 07/11/16 Methergine 07/11/16 Medical Decision Making - Diagnostics Imaging Results: Imaging Impressions Chest X-Ray 08/19/16 23:31 Impression: Peribronchial thickening which could be related to bronchitis or mild fluid overload. - Data Points Laboratory Results: Laboratory Results 08/20/16 00:11 08/20/16 00:11 08/20/16 08/20/16 08/20/16 04:12 03:55 02:08 WBC RBC Hgb Hct MCV MCH MCHC RDW Plt Count MPV Neut % (Auto) Lymph % (Auto) [place] % (Auto) Eos % (Auto) Baso % (Auto) Nucleat RBC Rel Count Absolute Neuts (auto) Absolute Lymphs (auto) Absolute Monos (auto) Absolute Eos (auto) Absolute Basos (auto) Absolute Nucleated RBC Immature Gran % Seg Neutrophils % Band Neutrophils % Lymphocytes % Basophils % Metamyelocytes % Immature Gran # Absolute Seg Neuts Absolute Band Neuts Absolute Lymphocytes Absolute Basophils Absolute Metamyelocyte RBC/WBC/PLT Morphology Toxic Granulation Platelet Estimate PT INR APTT D-Dimer VBG Lactic Acid 2.1 mmol/L mmol/L REJ (0.7-2.1) Sodium Potassium Chloride Carbon Dioxide Anion Gap BUN Creatinine Estimated GFR Glucose Calcium Magnesium Total Bilirubin Conjugated Bilirubin Unconjugated Bilirubin AST ALT Alkaline Phosphatase Creatine Kinase CK-MB (CK-2) Fraction Troponin I < 0.012 ng/mL ng/mL (0-0.034) NT-Pro-B Natriuret Pep Total Protein Albumin Lipase TSH 08/20/16 08/20/16 08/20/16 00:11 00:11 00:11 WBC 10.29 10^3/uL H 10^3/uL (3.80-9.50) RBC 4.81 10^6/uL 10^6/uL (4.18-5.33) Hgb 14.0 g/dL g/dL (12.6-16.3) Hct 41.1 % % (38.0-47.0) MCV 85.4 fL fL (81.5-99.8) MCH 29.1 pg pg (27.9-34.1) MCHC 34.1 g/dL g/dL (32.4-36.7) RDW 13.9 % % (11.5-15.2) Plt Count 290 10^3/uL 10^3/uL (150-400) MPV 10.4 fL fL (8.7-11.7) Neut % (Auto) Not Reported Lymph % (Auto) Not Reported [place] % (Auto) Not Reported Eos % (Auto) Not Reported Baso % (Auto) Not Reported Nucleat RBC Rel Count 0.0 % % (0.0-0.2) Absolute Neuts (auto) Not Reported Absolute Lymphs (auto) Not Reported Absolute Monos (auto) Not Reported Absolute Eos (auto) Not Reported Absolute Basos (auto) Not Reported Absolute Nucleated RBC 0.00 10^3/uL 10^3/uL (0-0.01) Immature Gran % Not Reported Seg Neutrophils % 89 % % Band Neutrophils % 6 % % Lymphocytes % 3 % % Basophils % 1 % % Metamyelocytes % 1 % % Immature Gran # Not Reported Absolute Seg Neuts 9.16 10^/uL H 10^/uL (1.70-6.50) Absolute Band Neuts 0.62 10^3/uL 10^3/uL (0.00-0.70) Absolute Lymphocytes 0.31 10^3/uL L 10^3/uL (1.00-3.00) Absolute Basophils 0.10 10^3/uL 10^3/uL (0.02-0.10) Absolute Metamyelocyte 0.10 10^3/mL H 10^3/mL (0.00-0.00) RBC/WBC/PLT Morphology NORMAL (NORMAL) Toxic Granulation PRESENT H Platelet Estimate ADEQUATE (ADEQ) PT 14.6 SEC SEC (12.0-15.0) INR 1.15 (0.83-1.16) APTT 28.8 SEC SEC (23.0-38.0) D-Dimer < 0.27 ug/mLFEU ug/mLFEU (0.00-0.50) VBG Lactic Acid Sodium 138 mEq/L mEq/L (134-144) Potassium 4.2 mEq/L mEq/L (3.5-5.2) Chloride 110 mEq/L mEq/L (97-110) Carbon Dioxide 15 mEq/l L mEq/l (22-31) Anion Gap 13 mEq/L mEq/L (8-16) BUN 10 mg/dL mg/dL (7-23) Creatinine 0.5 mg/dL L mg/dL (0.6-1.0) Estimated GFR > 60 Glucose 185 mg/dL H mg/dL (70-100) Calcium 9.1 mg/dL mg/dL (8.5-10.4) Magnesium 2.2 mg/dL mg/dL (1.6-2.3) Total Bilirubin 0.3 mg/dL mg/dL (0.1-1.4) Conjugated Bilirubin 0.3 mg/dL mg/dL (0.0-0.5) Unconjugated Bilirubin 0.0 mg/dL mg/dL (0.0-1.1) AST 26 IU/L IU/L (14-46) ALT 27 IU/L IU/L (9-52) Alkaline Phosphatase 85 IU/L IU/L (38-126) Creatine Kinase 31 IU/L IU/L (0-156) CK-MB (CK-2) Fraction 0.70 ng/mL ng/mL (0-3.19) Troponin I < 0.012 ng/mL ng/mL (0-0.034) NT-Pro-B Natriuret Pep 33 pg/mL pg/mL (0-125) Total Protein 6.9 g/dL g/dL (6.3-8.2) Albumin 4.0 g/dL g/dL (3.5-5.0) Lipase 207.0 IU/L IU/L (23-300) TSH 0.201 uIU/mL L uIU/mL (0.465-4.680) Medications Given: Discontinued Medications Aspirin (Aspirin) 324 mg PO EDNOW ONE Stop: 08/19/16 23:32 Last Admin: 08/20/16 00:03 Dose: 324 mg Sodium Chloride (Ns) 1,000 mls @ 0 mls/hr IV ONCE ONE PRN Reason: Wide Open Stop: 08/19/16 23:32 Last Admin: 08/20/16 00:10 Dose: 1,000 mls Sodium Chloride (Ns) 500 mls @ 0 mls/hr IV ONCE ONE PRN Reason: Wide Open Stop: 08/20/16 01:54 Last Admin: 08/20/16 02:10 Dose: 500 mls Lorazepam (Ativan Injection) 1 mg IVP EDNOW ONE Stop: 08/20/16 02:28 Last Admin: 08/20/16 02:25 Dose: 1 mg Departure - Departure Disposition: Home, Routine, Self-Care Clinical Impression: Heart palpitations, Hyperthyroidism Condition: Good Instructions: Palpitations (ED), Hyperthyroidism (ED) Additional Instructions: 1. Return immediately to the emergency room if you pass out have severe chest pain or shortness of breath. 2. I do recommend he follow up with your neurologist and her primary care doctor about your low TSH number and possible hyperthyroidism causing palpitations. Referrals: Harika Castro MD [Primary Care Provider] - As per Instructions Rich Howe MD [Medical Doctor] - As per Instructions
[2016-08-19] MEDS ORDERED: NS 1,000 ML IV ONE (23:31)
[2016-08-19] MEDS ORDERED: ASPIRIN 81 MG CHEWABLE TAB PO ONE (23:31)
--- NOTE | 2016-08-19 23:38 | CPEKG ---
Heart Rate: 106 RR Interval: 566 P-R Interval: 128 QRSD Interval: 90 QT Interval: 356 QTC Interval: 473 P [place]: 64 QRS [place]: 65 T Wave [place]: 17 EKG Severity - ABNORMAL ECG - EKG Impression: SINUS TACHYCARDIA EKG Impression: LEFT ATRIAL ABNORMALITY Electronically Signed By: Marcos Hood 20-Aug-2016 07:35:04
[2016-08-20 00:36] LABS: ADD DIFF? YES; ADD MORPH? NO; ADD SCAN? NO; ATYPICAL LYMPHOCYTE FLAG 0 (0-99); FRAGMENT RBC FLAG 0 (0-99); HEMATOCRIT 41.1 % (38.0-47.0); LEFT SHIFT FLG 20 (0-99); LIPEMIA HEMOLYSIS FLAG 90 (0-99); MEAN CELL HEMOGLOBIN 29.1 pg (27.9-34.1); MEAN CELL HEMOGLOBIN CONCENTR. 34.1 g/dL (32.4-36.7); MEAN CELL VOLUME 85.4 fL (81.5-99.8); MEAN PLATELET VOLUME 10.4 fL (8.7-11.7); PLATELET CLUMPS FLAG 10 (0-99); PLATELET COUNT 290 10^3/uL (150-400); RED BLOOD CELL COUNT 4.81 10^6/uL (4.18-5.33); RED CELL DISTRIBUTION WIDTH 13.9 % (11.5-15.2)
[2016-08-20 00:47] LABS: ALANINE AMINOTRANSFERASE 27 IU/L (9-52); ALKALINE PHOSPHATASE 85 IU/L (38-126); ANION GAP 13 mEq/L (8-16); ASPARTATE AMINOTRANSFERASE 26 IU/L (14-46); BILIRUBIN,TOTAL 0.3 mg/dL (0.1-1.4); BILIRUBIN-CONJUGATED 0.3 mg/dL (0.0-0.5); CALCIUM 9.1 mg/dL (8.5-10.4); CARBON DIOXIDE 15 mEq/l (22-31); CHLORIDE 110 mEq/L (97-110); CREATININE 0.5 mg/dL (0.6-1.0); GLOMERULAR FILTRATION RATE > 60; GLUCOSE 185 mg/dL (70-100); MAGNESIUM 2.2 mg/dL (1.6-2.3); POTASSIUM 4.2 mEq/L (3.5-5.2); SODIUM 138 mEq/L (134-144); TOTAL PROTEIN 6.9 g/dL (6.3-8.2)
[2016-08-20 00:53] LABS: INR 1.15 (0.83-1.16); PROTIME(PATIENT) 14.6 SEC (12.0-15.0)
[2016-08-20 00:54] LABS: APTT 28.8 SEC (23.0-38.0)
[2016-08-20 01:00] LABS: TROPONIN I < 0.012 ng/mL (0-0.034)
[2016-08-20 01:46] LABS: PLATELET ESTIMATE ADEQUATE (ADEQ)
[2016-08-20 01:47] LABS: TOXIC GRANULATION PRESENT
[2016-08-20] MEDS ORDERED: NS 500 ML IV ONE (01:53)
[2016-08-20] MEDS ORDERED: LORazepam 2 MG/ML INJ ONE (02:23)
[2016-08-20] MEDS ORDERED: LORazepam 2 MG/ML INJ IVP ONE (02:27)
[2016-08-20 05:32] VITALS: BP 98/69; PULSE 96; RESP 16; O2SAT 96
== END 2016-08-20 05:32 | disposition home or self-care (01) ==
DX: R00.2 Palpitations (principal); E05.90 Thyrotoxicosis, unspecified without thyrotoxic crisis or storm
CPT/HCPCS: 96374; J2060

== ENCOUNTER → 2016-09-20 | Outpatient (CLI) | payer OTHER | LOC: FIMAGING 11:26 | PROVIDERS: ATTEND Psychiatry & Neurology Neurology | DX: R07.1 Chest pain on breathing (principal) ==

== ENCOUNTER → 2016-12-09 | Outpatient (CLI) | payer OTHER ==
[~2016-12-09] MED LIST changes: -GADOBUTROL 10 ML VIAL IVP ONE; +IOPAMIDOL (ISOVUE-300) 100 ML BTL ONE
== END ==
LOC: FIMAGING 10:17
DX: G43.711 Chronic migraine without aura, intractable, with status migrainosus (principal); G35 Multiple sclerosis; M53.82 Other specified dorsopathies, cervical region; M51.26 Other intervertebral disc displacement, lumbar region
CPT/HCPCS: Q9967

== ENCOUNTER 2016-12-21 13:27 | Emergency (ER) | payer OTHER ==
--- NOTE | 2016-12-21 15:01 | EDPHY ---
H & P Time Seen by Provider: 12/21/16 14:23 HPI/ROS: CHIEF COMPLAINT: Migraine HISTORY OF PRESENT ILLNESS: The patient is a 41-year-old female with a history of MS and migraine. The patient states her headache started 4 days ago. She has tried to abort the migraine twice with Migranal. Patient states she used to get headaches weekly. She was started on Methergine by her neurologist Dr. Rizvi. This has greatly improved the frequency of migraines. She states she needs to go to the emergency department 3-4 times per year. The patient complains primarily of occipital pain. This is typical of previous migraines. It does not radiate. The pain is severe. She has photophobia and phonophobia. REVIEW OF SYSTEMS: My complete review of systems is negative except as mentioned in the HPI. Past Medical/Surgical History: Includes migraine, depression Smoking Status: Never smoked Physical Exam: Vitals noted GENERAL: Uncomfortable appearing, alert. HEENT: Eyes normal to inspection, normal pharynx, no signs of dehydration. NECK: No thyromegaly, no lymphadenopathy, supple. RESPIRATORY: Clear to auscultation bilaterally, no rales, rhonchi or wheezing. CVS: Regular rate and rhythm, no rubs, murmurs, or gallops. ABDOMEN: Soft, nontender, nondistended, no organomegaly. BACK: Normal to inspection, no CVA tenderness. SKIN: Normal color, no rash, warm, dry. No pallor. EXTREMITIES: No pedal edema, no calf tenderness, no Homans sign or cords, no joint swelling. NEURO/PSYCH: Higher functions: Alert and Oriented x3. Normal speech and cognition. Normal mood and affect. Cranial nerves: Normal as tested. Cerebellar: Normal as tested. Good finger to nose, good [id number], normal gait. Peripheral exam: Normal motor exam. Normal sensation. Normal reflexes. Constitutional: Initial Vital Signs Temperature (C) 36.8 C 12/21/16 13:34 Heart Rate 94 12/21/16 13:34 Respiratory Rate 20 12/21/16 13:34 Blood Pressure 112/88 H 12/21/16 13:34 O2 Sat (%) 96 12/21/16 13:34 O2 Delivery Mode Room Air Allergies/Adverse Reactions: acetaminophen [From Percocet] Allergy (Verified 12/21/16 13:32) metoclopramide HCl [From Reglan] Allergy (Verified 12/21/16 13:32) oxycodone [From Percocet] Allergy (Verified 12/21/16 13:32) Sulfa (Sulfonamide Antibiotics) Allergy (Verified 12/21/16 13:32) Home Medications: Medication Instructions Recorded Baclofen [Baclofen 10 mg (*)] 10 mg PO TID 04/17/14 Botulinum Toxin Type A [Botox] 100 unit INJ .[id number] 04/17/14 Gabapentin 600 mg PO TID 04/17/14 Topiramate [Topamax] 250 mg PO HS 04/17/14 tiZANidine HCL [Zanaflex] 4 mg PO HS 04/17/14 Cyanocobalamin [Vitamin B12 (*)] 1,000 mcg PO DAILY 03/16/15 Herbals/Supplements -Info Only 1 ea PO DAILY 03/16/15 Norethindrone AC-Eth Estradiol 1 tab PO DAILY 03/16/15 [Norethind-Eth Estrad 1-0.02 mg] Promethazine HCl 25 - 50 mg PO PRN PRN 03/16/15 Sertraline HCl [Zoloft 100mg (*)] 200 mg PO DAILY 03/16/15 HYDROcodone/APAP 10/325 [[place] 1 - 2 each PO Q4-6PRN PRN #20 tab 01/21/16 10/325 (*)] LORazepam [Ativan (*)] 1 mg PO TID PRN #14 tab 01/21/16 valACYclovir [Valtrex (*)] 500 mg PO DAILY 04/03/16 Medical Decision Making ED Course/Re-evaluation: In the emergency department I discussed possible etiologies with the patient. I answered all her questions. IV was placed. Patient was given Solu-Medrol 125 mg IV, Benadryl 25 mg IV, Toradol 30 mg IV, and fentanyl 50 mcg IV. 16 20: The patient states her migraine is much improved but still present. No focal neurologic deficits. She is given fentanyl 100 mcg IV for pain control. I rechecked the patient. She stated she was feeling much better. She was sitting up in bed. No focal neurologic deficits. She was considering being discharged. However she would like 1 more dose of pain medication. She was given fentanyl 100 mcg IV. 1855: I rechecked the patient. She was sitting on the bed. No focal deficits. She states she is feeling better. She would like to be discharged home. I do not feel she needs imaging or lumbar puncture at this time. She is given warnings prior to leaving. Differential Diagnosis: My differential includes but is not limited to migraine, ischemic CVA, hemorrhagic CVA, dissection, aneurysm, cluster headache - Data Points Medications Given: Discontinued Medications Diphenhydramine HCl (Benadryl Injection) 25 mg IVP EDNOW ONE Stop: 12/21/16 15:08 Last Admin: 12/21/16 15:39 Dose: 25 mg Fentanyl (Sublimaze) 50 mcg IVP EDNOW ONE Stop: 12/21/16 15:08 Last Admin: 12/21/16 15:38 Dose: 50 mcg Fentanyl (Sublimaze) 100 mcg IVP EDNOW ONE Stop: 12/21/16 16:22 Last Admin: 12/21/16 16:25 Dose: 100 mcg Fentanyl (Sublimaze) 100 mcg IVP EDNOW ONE Stop: 12/21/16 17:38 Last Admin: 12/21/16 17:51 Dose: 100 mcg Ketorolac Tromethamine (Toradol) 30 mg IVP EDNOW ONE Stop: 12/21/16 15:08 Last Admin: 12/21/16 15:35 Dose: 30 mg Methylprednisolone Sodium Succinate (Solu-Medrol) 125 mg IVP EDNOW ONE Stop: 12/21/16 15:08 Last Admin: 12/21/16 15:37 Dose: 125 mg Ondansetron HCl (Zofran) 4 mg IVP EDNOW ONE Stop: 12/21/16 15:08 Last Admin: 12/21/16 15:36 Dose: 4 mg Departure - Departure Disposition: Home, Routine, Self-Care Clinical Impression: Migraine headache Qualifiers: Migraine type: unspecified Status migrainosus presence: with status migrainosus Intractability: not intractable Qualified Code(s): G43.901 - Migraine, unspecified, not intractable, with status migrainosus Condition: Good Instructions: Migraine Headache (ED) Additional Instructions: Return with increasing headache, weakness, numbness, fever, repeated vomiting or any other concerns. Referrals: Harika Castro MD [Primary Care Provider] - 1-2 days without fail
[2016-12-21] MEDS ORDERED: KETOROLAC 30 MG/1 ML SDV IVP ONE (15:07)
[2016-12-21] MEDS ORDERED: ONDANSETRON 4 MG/2 ML VIAL IVP ONE (15:07)
[2016-12-21] MEDS ORDERED: methylPREDNISolone SOD SUCC 125 MG/2 ML VIAL IVP ONE (15:07)
[2016-12-21] MEDS ORDERED: fentaNYL 100 MCG/2 ML INJ IVP ONE ×3 (15:07→17:37)
[2016-12-21 16:20] VITALS: RESP 16
[2016-12-21 18:49] VITALS: BP 124/78; PULSE 76; O2SAT 96
[2016-12-21 19:11] VITALS: TEMP 97.9
== END 2016-12-21 19:11 | disposition home or self-care (01) ==
DX: G43.901 Migraine, unspecified, not intractable, with status migrainosus (principal)
CPT/HCPCS: 96374; J1200; J1885; J2405; J3010

== ENCOUNTER 2016-12-27 16:56 | Emergency (ER) | payer OTHER ==
[2016-12-27 17:01] VITALS: RESP 16; TEMP 98.6
[2016-12-27] MEDS ORDERED: KETOROLAC 15 MG/1 ML SDV IVP/IM ONE (18:02)
[2016-12-27] MEDS ORDERED: DEXAMETHASONE 4 MG/ML VIAL IVP ONE (18:02)
[2016-12-27] MEDS ORDERED: DIAZEPAM 10 MG/2 ML SYR IVP ONE (18:02)
[2016-12-27] MEDS ORDERED: PROMETHAZINE HCL 25 MG/ML INJ IVP ONE (18:02)
[2016-12-27] MEDS ORDERED: DIHYDROERGOTAMINE 1 MG/ML AMP IVP ONE (18:06)
[2016-12-27] MEDS ORDERED: HYDROmorphONE/DILAUDID 1 MG/ML INJ IVP ONE (18:10)
--- NOTE | 2016-12-27 18:11 | EDPHY ---
H & P Time Seen by Provider: 12/27/16 17:28 HPI/ROS: CHIEF COMPLAINT: Migraine HISTORY OF PRESENT ILLNESS: 41-year-old female with long history of migraine headaches, seen here on the 21 of December. Patient is followed by Dr. Rizvi at [facility]. She has had multiple interventions for her migraines in the past including occipital nerve blocks and Botox. She tells me that Dr. Worthington placed her on methergin several months ago which was quite effective for her headaches. However, she was taken off the Methergine for abnormal findings on her chest x-ray. Since that time she has been to the emergency department on 2 occasions previously and today as well. Patient does note that she has been having diarrhea for the last week. Several of her children have also been complaining of abdominal upset and loose stools. No fevers. No vomiting. Headache is similar to all prior migraine headaches. Located behind the right eye. Also complains of pain in her neck. Associated with nausea, photophobia, and phonophobia. No recent head trauma. Reports she recently received a chemotherapeutic like agent for her multiple sclerosis and is concerned that she may be immunocompromised. REVIEW OF SYSTEMS: Aside from elements discussed in the HPI, a comprehensive 10-point review of systems was reviewed and is negative. PAST MEDICAL HISTORY: Migraine, multiple sclerosis SOCIAL HISTORY: . VITAL SIGNS Reviewed by me. GENERAL: Well-developed, well-nourished, resting in a dark room. Patient is a face mask in place and a sweatshirt over her eyes. HEENT: Atraumatic. Eyes: PERRL, EOMI, no nystagmus. No icterus. No injection. Mouth: moist mucous membranes. No erythema or lesions. Neck: No meningitis. Nontender to palpation. No adenopathy. Negative Kernig's. Negative Brudzinski's. No meningismus. LUNGS: Clear to auscultation bilaterally, no wheezes, rhonchi or rales. CARDIAC: Regular rate and rhythm, no rubs, murmurs or gallops. ABDOMEN: Soft, nontender, nondistended, bowel sounds normal. BACK: No CVA tenderness. EXTREMITIES: No trauma. No edema. Range of motion is normal throughout. NEURO: Alert and oriented, cranial nerves II through XII are intact. Motor strength 5 over 5 in all major muscle groups. Sensation intact to light touch. Normal gait. SKIN: Warm and dry, no rash. PSYCHIATRIC: Normal mentation, no agitation. Smoking Status: Never smoked Constitutional: Initial Vital Signs Temperature (C) 37 C 12/27/16 16:59 Heart Rate 92 12/27/16 16:59 Respiratory Rate 16 12/27/16 16:59 Blood Pressure 128/61 H 12/27/16 16:59 O2 Sat (%) 97 12/27/16 16:59 O2 Delivery Mode Room Air Allergies/Adverse Reactions: acetaminophen [From Percocet] Allergy (Verified 12/27/16 16:57) metoclopramide HCl [From Reglan] Allergy (Verified 12/27/16 16:57) oxycodone [From Percocet] Allergy (Verified 12/27/16 16:57) Sulfa (Sulfonamide Antibiotics) Allergy (Verified 12/27/16 16:57) Home Medications: Medication Instructions Recorded Baclofen [Baclofen 10 mg (*)] 10 mg PO TID 04/17/14 Botulinum Toxin Type A [Botox] 100 unit INJ .[id number] 04/17/14 Gabapentin 600 mg PO TID 04/17/14 Topiramate [Topamax] 250 mg PO HS 04/17/14 tiZANidine HCL [Zanaflex] 4 mg PO HS 04/17/14 Cyanocobalamin [Vitamin B12 (*)] 1,000 mcg PO DAILY 03/16/15 Herbals/Supplements -Info Only 1 ea PO DAILY 03/16/15 Norethindrone AC-Eth Estradiol 1 tab PO DAILY 03/16/15 [Norethind-Eth Estrad 1-0.02 mg] Promethazine HCl 25 - 50 mg PO PRN PRN 03/16/15 Sertraline HCl [Zoloft 100mg (*)] 200 mg PO DAILY 03/16/15 HYDROcodone/APAP 10325 [[place] 1 - 2 each PO Q4-6PRN PRN #20 tab 01/21/16 10325 (*)] LORazepam [Ativan (*)] 1 mg PO TID PRN #14 tab 01/21/16 valACYclovir [Valtrex (*)] 500 mg PO DAILY 04/03/16 Ondansetron Odt [Zofran Odt 4 mg 4 mg PO Q6 PRN #8 tab 12/27/16 (RX)] Medical Decision Making ED Course/Re-evaluation: Patient received IV DHE, Toradol, Decadron, Phenergan, Benadryl, Valium, and Zofran. Patient's course was discussed with Dr. Feliciano, a colleague of Dr. langley. Patient does have an appoint with Dr. Green of on Monday. Dr. Feliciano recommends that the patient take her typical migraine meds and utilize narcotics if needed to prevent further return to the emergency department. Patient was reexamined at 8:00 p.m.. She is feeling much improved. She was discharged home with a prescription of Zofran as well as a prepack. Patient does have multiple medications at home to use for her migraine headaches. Including hydrocodone. She understands the importance of using hydrocodone only as a final resort and that rebound headaches a could occur. Differential Diagnosis: After history was obtained, and the physical exam performed, a differential for headache was considered including, but not limited to, subarachnoid hemorrhage, migraine headache, tension headache and infectious causes such as meningitis, sinusitis, encephalitis. - Data Points Medications Given: Discontinued Medications Dexamethasone (Decadron Injection) 8 mg IVP EDNOW ONE Stop: 12/27/16 18:03 Last Admin: 12/27/16 18:22 Dose: 8 mg Diazepam (Valium Injection) 5 mg IVP EDNOW ONE Stop: 12/27/16 18:03 Last Admin: 12/27/16 18:23 Dose: 5 mg Dihydroergotamine Mesylate (Dhe) 1 mg IVP EDNOW ONE Stop: 12/27/16 18:07 Last Admin: 12/27/16 18:58 Dose: 1 mg Hydromorphone HCl (Dilaudid) 1 mg IVP EDNOW ONE Stop: 12/27/16 18:11 Last Admin: 12/27/16 18:58 Dose: 1 mg Sodium Chloride (Ns) 1,000 mls @ 0 mls/hr IV ONCE ONE PRN Reason: Wide Open Stop: 12/27/16 19:40 Last Admin: 12/27/16 18:00 Dose: 1,000 mls Ketorolac Tromethamine (Toradol) 15 mg IVP/IM EDNOW ONE Stop: 12/27/16 18:03 Last Admin: 12/27/16 18:23 Dose: 15 mg Ondansetron HCl (Zofran) 4 mg IVP EDNOW ONE Stop: 12/27/16 19:40 Last Admin: 12/27/16 19:42 Dose: 4 mg Ondansetron HCl (Zofran Odt 4 Mg Prepack#2) 1 btl TAKEHOME EDNOW ONE Stop: 12/27/16 20:06 Last Admin: 12/27/16 20:34 Dose: 1 btl Promethazine HCl (Phenergan) 12.5 mg IVP EDNOW ONE Stop: 12/27/16 18:03 Last Admin: 12/27/16 18:23 Dose: 12.5 mg Departure - Departure Disposition: Home, Routine, Self-Care Clinical Impression: Migraine headache Qualifiers: Migraine type: unspecified Status migrainosus presence: with status migrainosus Intractability: not intractable Qualified Code(s): G43.901 - Migraine, unspecified, not intractable, with status migrainosus Condition: Good Instructions: Migraine Headache (ED) Additional Instructions: Okay to use you medications for migraine headaches as directed. Please keep your appointment both for your CT scan and for Dr. Worthington. Referrals: Harika Castro MD [Primary Care Provider] - As per Instructions Prescriptions: Ondansetron Odt [Zofran Odt 4 mg (RX)] 4 mg PO Q6 PRN #8 tab PRN Reason: Nausea
[2016-12-27] MEDS ORDERED: NS 1,000 ML IV ONE (19:39)
[2016-12-27] MEDS ORDERED: ONDANSETRON 4 MG/2 ML VIAL IVP ONE (19:39)
[2016-12-27 19:46] VITALS: PULSE 77
[2016-12-27] MEDS ORDERED: ONDANSETRON 4MG PREPACK#2 BTL TAKEHOME ONE (20:05)
[2016-12-27 20:36] VITALS: BP 124/79; O2SAT 96
== END 2016-12-27 20:36 | disposition home or self-care (01) ==
DX: G43.901 Migraine, unspecified, not intractable, with status migrainosus (principal)
CPT/HCPCS: 96374; J1100; J1110; J1170; J1885; J2405; J2550

== ENCOUNTER → 2016-12-29 | Outpatient (CLI) | payer OTHER | LOC: FIMAGING 16:56 | DX: J84.10 Pulmonary fibrosis, unspecified (principal); R91.8 Other nonspecific abnormal finding of lung field ==

== ENCOUNTER 2017-01-27 09:15 | Emergency (ER) | payer OTHER ==
[2017-01-27] MEDS ORDERED: KETOROLAC 30 MG/1 ML SDV IVP ONE (09:31)
[2017-01-27] MEDS ORDERED: NS 1,000 ML IV ONE ×2 (09:31→10:56)
[2017-01-27] MEDS ORDERED: DEXAMETHASONE 10 MG/ML VIAL IVP ONE (09:31)
--- NOTE | 2017-01-27 09:53 | EDPHY ---
H & P Stated Complaint: Migraine sice yesterday,slightly relieved w/reg migraine meds Time Seen by Provider: 01/27/17 09:25 HPI/ROS: CHIEF COMPLAINT: Migraine headache since yesterday HISTORY OF PRESENT ILLNESS: 41-year-old female with a longstanding history of chronic migraine headaches seen emergency department previously for similar, followed by Dr Yañez at [facility], has had multiple imaging studies evaluation for migraines has an appointment on February 28 at the [facility] in [place] for her migraines. She is complaining of migraine headache since last evening she feels like her usual migraine headache, not thunderclap, not relieved with her usual migraine abortive therapy. She has positive photophobia, positive nausea. No vomiting. No head or neck injury or manipulation. REVIEW OF SYSTEMS: A ten point review of systems was performed and is negative with the exception of the items mentioned in the HPI PAST MEDICAL & SURGICAL HISTORY: Chronic migraine. Multiple sclerosis. SOCIAL HISTORY: . PHYSICAL EXAM (Prior to examination, patient consented to physical exam, hands were washed and my usual and customary physical exam procedures followed) 1) GENERAL: Well-developed, well-nourished, alert and oriented. Appears uncomfortable sitting in a darkened room with an eye mask on. 2) HEAD: Normocephalic, atraumatic 3) HEENT: Pupils equal, round, reactive to light bilaterally. Sclera anicteric. Nasopharynx, oropharynx, clear, no lesions. Ears bilaterally with normal tympanic membranes. 4) NECK: Full range of motion, no meningeal signs. 5) LUNGS: Clear auscultation bilaterally, no wheezes, no rhonchi, no retractions. 6) HEART: Regular rate and rhythm, no murmur, no heave, no gallop. 7) ABDOMEN: No guarding, no rebound, no focal tenderness, negative McBurney's, negative Garcia's, negative Rovsing's, negative peritoneal sign, 8) MUSCULOSKELETAL: Moving all extremities, no focal areas of tenderness, no obvious trauma. No peripheral edema or discoloration. 9) BACK: No CVA tenderness, no midline vertebral tenderness, no fluctuance, no step-off, no obvious trauma, no visual or palpable abnormality. 10) SKIN: No rash, no petechiae. 11) Psychiatric: Patient is oriented X 3, there is no agitation. 12) NEURO: Awake, alert, and oriented to person, place and time. Answers questions appropriately. There were no obvious focal neurologic abnormalities. No cerebellar dysfunction. Normal steady gait. Upper and lower extremities bilaterally with strength 5 / 5, reflexes 2+. DIFFERENTIAL DIAGNOSIS: In no particular order, including but not limited to subarachnoid hemorrhage, migraine headache, tension headache and infectious causes such as meningitis, pharyngitis and sinusitis. - Personal History LMP (Females 10-55): Extended Cycle BCP/Inj Current Tetanus Diphtheria and Acellular Pertussis (TDAP): Yes Tetanus Vaccine Date: <10 years - Medical/Surgical History Hx Asthma: No Hx Chronic Respiratory Disease: No Hx Diabetes: No Hx Cardiac Disease: No Hx Renal Disease: No Hx Cirrhosis: No Hx Alcoholism: No Hx HIV/AIDS: No Hx Splenectomy or Spleen Trauma: No Other PMH: MS;Migraines; depression, - Social History Smoking Status: Never smoked Constitutional: Initial Vital Signs Temperature (C) 36.7 C 01/27/17 09:20 Heart Rate 98 01/27/17 09:20 Respiratory Rate 18 01/27/17 09:20 Blood Pressure 108/72 01/27/17 09:20 O2 Sat (%) 95 01/27/17 09:20 O2 Delivery Mode Room Air Allergies/Adverse Reactions: metoclopramide HCl [From Reglan] Allergy (Intermediate, Verified 01/27/17 09:17) extreme anxiety oxycodone [From Percocet] Allergy (Mild, Verified 01/27/17 09:17) n/v acetaminophen [From Percocet] Allergy (Verified 12/27/16 16:57) Sulfa (Sulfonamide Antibiotics) Allergy (Verified 12/27/16 16:57) Home Medications: Medication Instructions Recorded Baclofen [Baclofen 10 mg (*)] 10 mg PO TID 04/17/14 Botulinum Toxin Type A [Botox] 100 unit INJ .[id number] 04/17/14 Gabapentin 600 mg PO TID 04/17/14 Topiramate [Topamax] 250 mg PO HS 04/17/14 tiZANidine HCL [Zanaflex] 4 mg PO HS 04/17/14 Cyanocobalamin [Vitamin B12 (*)] 1,000 mcg PO DAILY 03/16/15 Herbals/Supplements -Info Only 1 ea PO DAILY 03/16/15 Norethindrone AC-Eth Estradiol 1 tab PO DAILY 03/16/15 [Norethind-Eth Estrad 1-0.02 mg] Promethazine HCl 25 - 50 mg PO PRN PRN 03/16/15 Sertraline HCl [Zoloft 100mg (*)] 200 mg PO DAILY 03/16/15 HYDROcodone/APAP [[place] 1 - 2 each PO Q4-6PRN PRN #20 tab 01/21/16 10325 (*)] LORazepam [Ativan (*)] 1 mg PO TID PRN #14 tab 01/21/16 valACYclovir [Valtrex (*)] 500 mg PO DAILY 04/03/16 Ondansetron Odt [Zofran Odt 4 mg 4 mg PO Q6 PRN #8 tab 12/27/16 (RX)] Dihydroergotamine Mesylate 1 ml NS 01/27/17 [Migranal] Medical Decision Making ED Course/Re-evaluation: 9:38 a.m.: Old medical records reviewed. Patient states that she typically responds to initial border regimen of DHE, Decadron, IV fluids, Benadryl, Toradol, and antiemetic. Will administer these and re-evaluated. Patient requested I speak with her supervisor painting 9:43 a.m.: Phone consultation with her supervisor painting Dr. Terrell who reinforces regimen of DHE, Toradol and other medications that patient discussed. 11:19 a.m.: Patient has pain down from a 9 to a 3. Spoke with the patient at this time, her informs me that he texted Dr Terrell and given her continued level of pain, recommends in opioid. She has received Dilaudid in the past with excellent results and requests this at this time. 12:30 p.m.: Re-evaluation, she is feeling improvement, would like to be discharged. Recommend she keep her appointment with supervisor painting keep her appointment the [facility] for evaluation of her migraines. I think that subarachnoid hemorrhage, intracranial mass, malignancy, less than likely in this patient at this time. I do not think that the benefits of CT imaging, lumbar puncture, outweigh the risks in this patient. Patient feels comfortable being discharged - Data Points Medications Given: Discontinued Medications Dexamethasone (Decadron Injection) 10 mg IVP EDNOW ONE Stop: 01/27/17 09:32 Last Admin: 01/27/17 10:02 Dose: 10 mg Dihydroergotamine Mesylate (Dhe) 1 mg IVP EDNOW ONE Stop: 01/27/17 09:32 Last Admin: 01/27/17 10:33 Dose: 1 mg Diphenhydramine HCl (Benadryl Injection) 25 mg IVP EDNOW ONE Stop: 01/27/17 09:32 Last Admin: 01/27/17 10:03 Dose: 25 mg Hydromorphone HCl (Dilaudid) 1 mg IVP EDNOW ONE Stop: 01/27/17 11:19 Last Admin: 01/27/17 11:21 Dose: 1 mg Sodium Chloride (Ns) 1,000 mls @ 0 mls/hr IV ONCE ONE PRN Reason: Wide Open Stop: 01/27/17 09:32 Last Admin: 01/27/17 10:04 Dose: 1,000 mls Sodium Chloride (Ns) 1,000 mls @ 0 mls/hr IV ONCE ONE PRN Reason: Wide Open Stop: 01/27/17 10:57 Last Admin: 01/27/17 11:00 Dose: 1,000 mls Ketorolac Tromethamine (Toradol) 30 mg IVP EDNOW ONE Stop: 01/27/17 09:32 Last Admin: 01/27/17 10:03 Dose: 30 mg Ondansetron HCl (Zofran Odt) 4 mg PO EDNOW ONE Stop: 01/27/17 10:53 Last Admin: 01/27/17 11:01 Dose: Not Given Ondansetron HCl (Zofran) 4 mg IVP EDNOW ONE Stop: 01/27/17 10:56 Last Admin: 01/27/17 11:00 Dose: 4 mg Departure - Departure Disposition: Home, Routine, Self-Care Clinical Impression: Migraine headache Qualifiers: Migraine type: unspecified Status migrainosus presence: without status migrainosus Intractability: not intractable Qualified Code(s): G43.909 - Migraine, unspecified, not intractable, without status migrainosus Condition: Good Instructions: Migraine Headache (ED) Additional Instructions: THANK YOU FOR YOUR VISIT TO OUR EMERGENCY DEPARTMENT (ED). YOU WERE SEEN TODAY BECAUSE OF A HEADACHE. YOU MAY HAVE HAD LAB TESTS, A CT SCAN, MRI OR EVEN A LUMBAR PUNCTURE (COMMONLY REFERRED TO A SPINAL TAP). WE CANNOT ALWAYS FIND THE EXACT CAUSE OF YOUR SYMPTOMS DURING YOUR VISIT TO THE ED. PLEASE FOLLOW UP WITH YOUR DOCTOR WITHIN 24 HOURS TO BE RECHECKED. RETURN TO THE ED IMMEDIATELY IF YOUR HEADACHE WORSENS, IF YOU DEVELOP A FEVER, NECK PAIN OR NECK STIFFNESS, OR IF YOU BECOME CONFUSED OR ABNORMALLY DROWSY. Referrals: Follow-up, with Dr. Munoz next week [Other] - As per Instructions
[2017-01-27] MEDS: DIHYDROERGOTAMINE 1 MG/ML AMP IVP ONE ×2 (10:02→10:33)
[2017-01-27] MEDS ORDERED: ONDANSETRON DISINTEGRATING 4 MG TAB PO ONE (10:52)
[2017-01-27] MEDS ORDERED: ONDANSETRON 4 MG/2 ML VIAL ONE (10:54)
[2017-01-27] MEDS ORDERED: ONDANSETRON 4 MG/2 ML VIAL IVP ONE (10:55)
[2017-01-27] MEDS ORDERED: HYDROmorphONE/DILAUDID 1 MG/ML INJ IVP ONE (11:18)
[2017-01-27 13:08] VITALS: BP 122/71; PULSE 76; RESP 16; TEMP 98.5; O2SAT 98
== END 2017-01-27 12:47 | disposition home or self-care (01) ==
DX: G43.909 Migraine, unspecified, not intractable, without status migrainosus (principal)
CPT/HCPCS: 96374; J1100; J1110; J1170; J1200; J1885; J2405

== ENCOUNTER 2017-03-05 14:26 | Emergency (ER) | payer OTHER ==
[2017-03-05 14:46] VITALS: TEMP 97.7
--- NOTE | 2017-03-05 15:24 | EDPHY ---
H & P Time Seen by Provider: 03/05/17 15:21 HPI/ROS: CHIEF COMPLAINT: Migraine HISTORY OF PRESENT ILLNESS: The patient is a 41 y/o female with a history of migraine headaches complaining of a right-sided migraine headache associated with photophobia and nausea since Monday, 2 days ago. This is a typical migraine headache for her. She did not have relief with DHE at home. Recently returned from the [facility] for evaluation of migraine headaches. [place] MD recommended she take up to 3mg IV DHE today. DHE, Toradol, promethazine, and a steroid, lorazepam or Benadryl usually resolve her migraines. Denies vomiting, paresthesias, weakness, fever or other pertinent symptoms. REVIEW OF SYSTEMS: Aside from elements discussed in the HPI, a comprehensive 10-point review of systems was reviewed and is negative. Past Medical/Surgical History: MS, migraines, depression Social History: at bedside, lives in [place], nonsmoker Smoking Status: Never smoked Physical Exam: General Appearance: Lying in a dark room with sunglasses, alert, pleasant Eyes: Photophobic, pupils equal and round, no conjunctival pallor ENT, Mouth: Mucous membranes moist Neck: Normal inspection Respiratory: Lungs are clear to auscultation Cardiovascular: Regular rate and rhythm Gastrointestinal: Abdomen is soft and non-tender Neurological: A&O, CN II-XII intact, motor 5/5, sensory intact, gait not assessed Skin: Warm and dry, no rash Extremities: Nontender, no pedal edema Psychiatric: Mood and affect normal Constitutional: Initial Vital Signs Temperature (C) 36.5 C 03/05/17 14:35 Heart Rate 85 03/05/17 14:35 Respiratory Rate 16 03/05/17 14:35 Blood Pressure 124/89 H 03/05/17 14:35 O2 Sat (%) 98 03/05/17 14:35 O2 Delivery Mode Room Air Allergies/Adverse Reactions: metoclopramide HCl [From Reglan] Allergy (Intermediate, Verified 03/05/17 14:41) extreme anxiety oxycodone [From Percocet] Allergy (Mild, Verified 03/05/17 14:41) n/v acetaminophen [From Percocet] Allergy (Verified 03/05/17 14:41) Sulfa (Sulfonamide Antibiotics) Allergy (Verified 03/05/17 14:41) Home Medications: Medication Instructions Recorded Baclofen [Baclofen 10 mg (*)] 10 mg PO TID 04/17/14 Botulinum Toxin Type A [Botox] 100 unit INJ .[id number] 04/17/14 Gabapentin 600 mg PO TID 04/17/14 Topiramate [Topamax] 250 mg PO HS 04/17/14 tiZANidine HCL [Zanaflex] 4 mg PO HS 04/17/14 Cyanocobalamin [Vitamin B12 (*)] 1,000 mcg PO DAILY 03/16/15 Norethindrone AC-Eth Estradiol 1 tab PO DAILY 03/16/15 [Norethind-Eth Estrad 1-0.02 mg] Promethazine HCl 25 - 50 mg PO PRN PRN 03/16/15 Sertraline HCl [Zoloft 100mg (*)] 200 mg PO DAILY 03/16/15 HYDROcodone/APAP 10325 [[place] 1 - 2 each PO Q4-6PRN PRN #20 tab 01/21/16 10/325 (*)] LORazepam [Ativan (*)] 1 mg PO TID PRN #14 tab 01/21/16 valACYclovir [Valtrex (*)] 500 mg PO DAILY 04/03/16 Dihydroergotamine Mesylate 1 ml NS 01/27/17 [Migranal] Medical Decision Making - Diagnostics EKG Interpretation: EKG interpreted by me reveals normal sinus rhythm with a rate of 85, normal axis , normal intervals, ST and T segments normal. Interpretation: normal EKG Imaging: I viewed and interpreted images myself ED Course/Re-evaluation: The patient is a 41 y/o female with a history of migraine headaches, presenting with a typical right-sided migraine headache associated with photophobia and nausea since Monday, 3 days ago. 25mg IV Benadryl, 30mg IV Toradol, 12.5mg IV Phenergan, and 1L IV NS administered. 1612: Patient is now complaining of chest burning and abdominal pain after medications. Plan on EKG. GI cocktail ordered. 1621: EKG interpreted by me reveals normal sinus rhythm with a rate of 85, no ST or T segment changes. No evidence of ischemia. 1642: Reassessed patient, she is still nauseous and having a burning sensation in her chest. Her headache has improved. 4mg IV Zofran and 10mg IV Decadron administered. GI cocktail given for chest discomfort, with complete resolution of pain; c/w GERD. 1710: Feels much better and wants to go home. Return precautions provided. Differential Diagnosis: Headache including but not limited to subarachnoid hemorrhage, migraine headache , tension headache and infectious causes such as meningitis, pharyngitis and sinusitis. - Data Points Medications Given: Discontinued Medications Al Hydroxide/Mg Hydroxide (Maalox Susp) 30 ml PO ONCE ONE Stop: 03/05/17 16:42 Last Admin: 03/05/17 16:45 Dose: 30 ml Dexamethasone (Decadron Injection) 10 mg IVP EDNOW ONE Stop: 03/05/17 16:45 Last Admin: 03/05/17 16:48 Dose: 10 mg Dihydroergotamine Mesylate (Dhe) 1 mg IVP EDNOW ONE Stop: 03/05/17 15:35 Last Admin: 03/05/17 16:08 Dose: 1 mg Diphenhydramine HCl (Benadryl Injection) 25 mg IVP EDNOW ONE Stop: 03/05/17 15:35 Last Admin: 03/05/17 15:44 Dose: 25 mg Hyoscyamine Sulfate (Levsin, Hyomax-Sl) 0.25 mg PO ONCE ONE Stop: 03/05/17 16:42 Last Admin: 03/05/17 16:45 Dose: 0.25 mg Sodium Chloride (Ns) 1,000 mls @ 0 mls/hr IV ONCE ONE; Wide Open PRN Reason: Protocol Stop: 03/05/17 15:36 Last Admin: 03/05/17 15:45 Dose: 1,000 mls Ketorolac Tromethamine (Toradol) 30 mg IVP EDNOW ONE Stop: 03/05/17 15:35 Last Admin: 03/05/17 15:45 Dose: 30 mg Lidocaine (Lidocaine 2% Viscous) 15 ml PO ONCE ONE Stop: 03/05/17 16:42 Last Admin: 03/05/17 16:45 Dose: 15 ml Ondansetron HCl (Zofran) 4 mg IVP EDNOW ONE Stop: 03/05/17 16:39 Last Admin: 03/05/17 16:45 Dose: 4 mg Ondansetron HCl (Zofran) 4 mg IVP EDNOW ONE Stop: 03/05/17 16:45 Last Admin: 03/05/17 16:46 Dose: Not Given Promethazine HCl (Phenergan) 12.5 mg IVP EDNOW ONE Stop: 03/05/17 15:35 Last Admin: 03/05/17 15:44 Dose: 12.5 mg Departure - Departure Disposition: Home, Routine, Self-Care Clinical Impression: Nausea Migraine headache Qualifiers: Migraine type: other Status migrainosus presence: with status migrainosus Intractability: intractable Qualified Code(s): G43.811 - Other migraine, intractable, with status migrainosus Condition: Good Instructions: Migraine Headache (ED), Acute Nausea and Vomiting (ED) Additional Instructions: Follow-up with your primary care physician within 72 hours. Return to the emergency department immediately for recurrence of headache, nausea, vomiting, numbness, weakness, neck pain, fever or other concerns. Referrals: Esther Hernandez MD [Primary Care Provider] - As per Instructions Report Scribed for: Suzanne Dillon Report Scribed by: Evangelina Garcia Date of Report: 03/05/17 Time of Report: 15:23 Physician Review and Approval Statement: 03/05/17 15:23 Portions of this note were transcribed by a medical art therapist. I personally performed a history, physical exam, medical decision making, and confirmed accuracy of information the transcribed note.
[2017-03-05] MEDS ORDERED: DIHYDROERGOTAMINE 1 MG/ML AMP IVP ONE (15:34)
[2017-03-05] MEDS ORDERED: KETOROLAC 30 MG/1 ML SDV IVP ONE (15:34)
[2017-03-05] MEDS ORDERED: PROMETHAZINE HCL 25 MG/ML INJ IVP ONE (15:34)
[2017-03-05] MEDS ORDERED: NS 1,000 ML IV ONE (15:35)
--- NOTE | 2017-03-05 16:22 | CPEKG ---
Heart Rate: 85 RR Interval: 706 P-R Interval: 144 QRSD Interval: 90 QT Interval: 380 QTC Interval: 452 P [place]: 31 QRS [place]: 58 T Wave [place]: 37 EKG Severity - BORDERLINE ECG - EKG Impression: SINUS RHYTHM EKG Impression: PROBABLE LEFT ATRIAL ABNORMALITY Electronically Signed By: Suzanne Dillon 05-Mar-2017 23:23:02
[2017-03-05] MEDS ORDERED: ONDANSETRON 4 MG/2 ML VIAL IVP ONE ×2 (16:38→16:44)
[2017-03-05] MEDS ORDERED: HYOSCYAMINE SULFATE 0.125 MG TAB PO ONE (16:41)
[2017-03-05] MEDS ORDERED: LIDOCAINE 2% VISCOUS 15 ML UDCUP PO ONE (16:41)
[2017-03-05] MEDS ORDERED: MAG HYDROX/AL HYDROX/SIMETH 30 ML UDCUP PO ONE (16:41)
[2017-03-05] MEDS ORDERED: DEXAMETHASONE 10 MG/ML VIAL IVP ONE (16:44)
[2017-03-05 16:58] VITALS: BP 120/71; RESP 18; O2SAT 96
[2017-03-05 17:17] VITALS: PULSE 82
== END 2017-03-05 17:16 | disposition home or self-care (01) ==
DX: G43.811 Other migraine, intractable, with status migrainosus (principal); E86.9 Volume depletion, unspecified
CPT/HCPCS: 96374; J1100; J1110; J1200; J1885; J2405; J2550

== ENCOUNTER 2017-03-16 15:45 | Emergency (ER) | payer OTHER ==
[2017-03-16] MEDS ORDERED: HALOPERIDOL LACT 5 MG/ML INJ IVP ONE (16:07)
[2017-03-16] MEDS ORDERED: DEXAMETHASONE 10 MG/ML VIAL IVP ONE (16:07)
[2017-03-16] MEDS ORDERED: NS 1,000 ML IV ONE (16:07)
[2017-03-16] MEDS ORDERED: KETOROLAC 15 MG/1 ML SDV IVP ONE (16:07)
--- NOTE | 2017-03-16 16:09 | EDPHY ---
H & P Stated Complaint: Recurrence of typical migraine Time Seen by Provider: 03/16/17 15:58 HPI/ROS: Chief Complaint: Migraine headache HPI: 41-year-old woman with a history of chronic migraines is presenting with atypical 8/10 migraine headache on the right side of her head. Patient states the headache started about 4 days ago. She is taking DHE nasal with minimal relief. Some nausea. Positive photophobia. Patient has been seen at the [facility] recently and has been having some changes to her medications. She has scheduled follow-up with a new neurologist in [place] next month. No fevers or chills. No neck pain or stiffness. This is not any different than her typical migraine. Last emergency department presentation was about 2 weeks ago. ROS: 10 point Review of Systems is negative except as noted in the HPI. PMH: Migraine headaches Social History: No smoking Family History: non-contributory Physical Exam: Gen: Awake, Alert, No Distress HEENT: Nose: no rhinorrhea Eyes: PERRLA, EOMI Mouth: Moist mucosa Neck: Supple, no JVD Chest: nontender, lungs clear to auscultation Heart: S1, S2 normal, no murmur Abd: Soft, non-tender, no guarding Back: no CVA tenderness, no midline tenderness Ext: no edema, non-tender Skin: no rash Neuro: CN II-XII intact, Sensation grossly intact, Strength 5/5 in bilateral upper and lower extremities - Personal History LMP (Females 10-55): 15-21 Days Ago Current Tetanus Diphtheria and Acellular Pertussis (TDAP): Yes Tetanus Vaccine Date: <10 years - Medical/Surgical History Hx Asthma: No Hx Chronic Respiratory Disease: No Hx Diabetes: No Hx Cardiac Disease: No Hx Renal Disease: No Hx Cirrhosis: No Hx Alcoholism: No Hx HIV/AIDS: No Hx Splenectomy or Spleen Trauma: No Other PMH: MS;Migraines; depression, - Social History Smoking Status: Never smoked Constitutional: Initial Vital Signs Temperature (C) 36.9 C 03/16/17 15:48 Heart Rate 88 03/16/17 15:48 Respiratory Rate 16 03/16/17 15:48 Blood Pressure 138/57 H 03/16/17 15:48 O2 Sat (%) 98 03/16/17 15:48 O2 Delivery Mode Room Air Allergies/Adverse Reactions: metoclopramide HCl [From Reglan] Allergy (Intermediate, Verified 03/16/17 15:47) extreme anxiety oxycodone [From Percocet] Allergy (Mild, Verified 03/16/17 15:47) n/v acetaminophen [From Percocet] Allergy (Verified 03/16/17 15:47) Sulfa (Sulfonamide Antibiotics) Allergy (Verified 03/16/17 15:47) Home Medications: Medication Instructions Recorded Baclofen [Baclofen 10 mg (*)] 10 mg PO TID 04/17/14 Botulinum Toxin Type A [Botox] 100 unit INJ .[id number] 04/17/14 Gabapentin 600 mg PO TID 04/17/14 Topiramate [Topamax] 250 mg PO HS 04/17/14 tiZANidine HCL [Zanaflex] 4 mg PO HS 04/17/14 Cyanocobalamin [Vitamin B12 (*)] 1,000 mcg PO DAILY 03/16/15 Norethindrone AC-Eth Estradiol 1 tab PO DAILY 03/16/15 [Norethind-Eth Estrad 1-0.02 mg] Promethazine HCl 25 - 50 mg PO PRN PRN 03/16/15 Sertraline HCl [Zoloft 100mg (*)] 200 mg PO DAILY 03/16/15 HYDROcodone/APAP 10325 [[place] 1 - 2 each PO Q4-6PRN PRN #20 tab 01/21/16 10/325 (*)] LORazepam [Ativan (*)] 1 mg PO TID PRN #14 tab 01/21/16 valACYclovir [Valtrex (*)] 500 mg PO DAILY 04/03/16 Dihydroergotamine Mesylate 1 ml NS 01/27/17 [Migranal] Medical Decision Making ED Course/Re-evaluation: 41-year-old presenting with your typical exacerbate her chronic migraine headaches. Patient is improved after IV medications and fluids here. There are no red flags for acute intracranial bleed or infection. Plan will be for discharge with follow-up with her neurology appointment next month. - Data Points Medications Given: Discontinued Medications Dexamethasone (Decadron Injection) 10 mg IVP EDNOW ONE Stop: 03/16/17 16:08 Last Admin: 03/16/17 17:26 Dose: 10 mg Dihydroergotamine Mesylate (Dhe) 1 mg IVP EDNOW ONE Stop: 03/16/17 18:04 Last Admin: 03/16/17 18:47 Dose: 1 mg Diphenhydramine HCl (Benadryl Injection) 50 mg IVP EDNOW ONE Stop: 03/16/17 16:08 Last Admin: 03/16/17 17:27 Dose: 50 mg Haloperidol Lactate (Haldol Injection) 2.5 mg IVP EDNOW ONE Stop: 03/16/17 16:08 Last Admin: 03/16/17 17:28 Dose: 2.5 mg Sodium Chloride (Ns) 1,000 mls @ 0 mls/hr IV ONCE ONE; Wide Open PRN Reason: Protocol Stop: 03/16/17 16:08 Last Admin: 03/16/17 17:22 Dose: 1,000 mls Ketorolac Tromethamine (Toradol) 15 mg IVP EDNOW ONE Stop: 03/16/17 16:08 Last Admin: 03/16/17 17:27 Dose: 15 mg Ondansetron HCl (Zofran) 4 mg IVP EDNOW ONE Stop: 03/16/17 19:00 Last Admin: 03/16/17 19:01 Dose: 4 mg Departure - Departure Disposition: Home, Routine, Self-Care Clinical Impression: Migraine headache Condition: Good Instructions: Migraine Headache (ED) Additional Instructions: Return to the emergency department for worsening headache, nausea, vomiting, fevers, chills, or any other concerns. Follow up with your Neurology appointment as scheduled. Referrals: Esther Hernandez MD [Primary Care Provider] - As per Instructions
[2017-03-16] MEDS ORDERED: DIHYDROERGOTAMINE 1 MG/ML AMP IVP ONE (18:03)
[2017-03-16 18:50] VITALS: RESP 18; O2SAT 96
[2017-03-16] MEDS ORDERED: ONDANSETRON 4 MG/2 ML VIAL IVP ONE (18:59)
[2017-03-16 19:51] VITALS: BP 126/79; PULSE 74; TEMP 97.9
== END 2017-03-16 19:55 | disposition home or self-care (01) ==
DX: G43.909 Migraine, unspecified, not intractable, without status migrainosus (principal)
CPT/HCPCS: 96374; J1100; J1110; J1200; J1630; J1885; J2405

== ENCOUNTER 2017-05-16 09:01 | Emergency (ER) | payer OTHER ==
[2017-05-16 09:09] VITALS: TEMP 98.2
[2017-05-16] MEDS ORDERED: DEXAMETHASONE 4 MG/ML VIAL IVP ONE (09:25)
[2017-05-16] MEDS ORDERED: METOCLOPRAMIDE 10 MG/2 ML VIAL IVP ONE (09:25)
[2017-05-16] MEDS ORDERED: KETOROLAC 15 MG/1 ML SDV IVP/IM ONE (09:25)
[2017-05-16] MEDS ORDERED: HALOPERIDOL LACT 5 MG/ML INJ IVP ONE (09:25)
[2017-05-16] MEDS ORDERED: DIHYDROERGOTAMINE 1 MG/ML AMP IVP ONE (09:25)
--- NOTE | 2017-05-16 09:25 | EDPHY ---
H & P Stated Complaint: migrraine/hx ms saw dr louie/neurology monday/meds changed Time Seen by Provider: 05/16/17 09:10 HPI/ROS: CHIEF COMPLAINT: Right-sided migraine headache times 24 hr HISTORY OF PRESENT ILLNESS: 42-year-old female with longstanding history of chronic migraine headache is followed by neurologist Dr. Louie in [place] and has previously been to the [facility]. She was started by her neurologist on prophylactic indomethacin in March recently had this increased to 75 mg extended release twice daily 4 days ago. She has taken her usual abortive medications with no relief. This feels like her usual headache. Not thunderclap. Atraumatic. Positive photophobia, positive audio phobia. No slurred speech. No gait instability. No chest pain or dyspnea. No back pain . Patient notes that she typically responds well to DHE as well as prior ER medications including Bentyl Haldol Toradol Decadron. REVIEW OF SYSTEMS: A ten point review of systems was performed and is negative with the exception of the items mentioned in the HPI PAST MEDICAL & SURGICAL HISTORY: Chronic migraine SOCIAL HISTORY: nonsmoker no drug use PHYSICAL EXAM (Prior to examination, patient consented to physical exam, hands were washed and my usual and customary physical exam procedures followed) 1) GENERAL: [Well-developed, well-nourished, alert and oriented. Sitting in a darkened room with her eyes covered up 2) HEAD: Normocephalic, atraumatic 3) HEENT: Pupils equal, round, reactive to light bilaterally. Sclera anicteric. Nasopharynx, oropharynx, clear, no lesions. Ears bilaterally with normal tympanic membranes. 4) NECK: Full range of motion, no meningeal signs. 5) LUNGS: Clear auscultation bilaterally, no wheezes, no rhonchi, no retractions. 6) HEART: Regular rate and rhythm, no murmur, no heave, no gallop. 7) ABDOMEN: No guarding, no rebound, no focal tenderness, negative McBurney's, negative Garcia's, negative Rovsing's, negative peritoneal sign, 8) MUSCULOSKELETAL: Moving all extremities, no focal areas of tenderness, no obvious trauma. No peripheral edema or discoloration. 9) BACK: No CVA tenderness, no midline vertebral tenderness, no fluctuance, no step-off, no obvious trauma, no visual or palpable abnormality. 10) SKIN: No rash, no petechiae. 11) Psychiatric: Patient is oriented X 3, there is no agitation. 12) NEURO: Awake, alert, and oriented to person, place and time. Answers questions appropriately. There were no obvious focal neurologic abnormalities. No cerebellar dysfunction. Cranial nerves 2 through to 12 intact. Normal steady gait. Upper and lower extremities bilaterally with strength 5 / 5, reflexes 2+. DIFFERENTIAL DIAGNOSIS: In no particular order, including but not limited to subarachnoid hemorrhage, migraine headache, tension headache and infectious causes such as meningitis, pharyngitis and sinusitis. The patient understands that this diagnosis is provisional and can never be 100% accurate. Usual and customary warnings were given concerning the clinical impression and all the patient's questions were answered. The patient was instructed to return to the emergency department should her symptoms worsen or return, or develop any new symptoms, otherwise to followup as directed in discharge instructions. This is a partial list of diagnoses considered. These considerations are based on history, physical exam, past history and reassessment. - Personal History LMP (Females 10-55): Over 28 Days Ago Current Tetanus/Diphtheria Vaccine: Yes Tetanus Vaccine Date: <10 years - Medical/Surgical History Hx Asthma: No Hx Chronic Respiratory Disease: No Hx Diabetes: No Hx Cardiac Disease: No Hx Renal Disease: No Hx Cirrhosis: No Hx Alcoholism: No Hx HIV/AIDS: No Hx Splenectomy or Spleen Trauma: No Other PMH: MS;Migraines; depression, MS - Social History Smoking Status: Never smoked Constitutional: Initial Vital Signs Temperature (C) 36.8 C 05/16/17 09:07 Heart Rate 74 05/16/17 09:07 Respiratory Rate 20 05/16/17 09:07 Blood Pressure 134/85 H 05/16/17 09:07 O2 Sat (%) 97 05/16/17 09:07 O2 Delivery Mode Room Air Allergies/Adverse Reactions: metoclopramide HCl [From Reglan] Allergy (Intermediate, Verified 03/16/17 15:47) extreme anxiety oxycodone [From Percocet] Allergy (Mild, Verified 03/16/17 15:47) n/v acetaminophen [From Percocet] Allergy (Verified 03/16/17 15:47) Sulfa (Sulfonamide Antibiotics) Allergy (Verified 03/16/17 15:47) Home Medications: Medication Instructions Recorded Baclofen [Baclofen 10 mg (*)] 10 mg PO TID 04/17/14 Botulinum Toxin Type A [Botox] 100 unit INJ .[id number] 04/17/14 Gabapentin 600 mg PO TID 04/17/14 Topiramate [Topamax] 250 mg PO HS 04/17/14 tiZANidine HCL [Zanaflex] 4 mg PO HS 04/17/14 Cyanocobalamin [Vitamin B12 (*)] 1,000 mcg PO DAILY 03/16/15 Norethindrone AC-Eth Estradiol 1 tab PO DAILY 03/16/15 [Norethind-Eth Estrad 1-0.02 mg] Promethazine HCl 25 - 50 mg PO PRN PRN 03/16/15 Sertraline HCl [Zoloft 100mg (*)] 200 mg PO DAILY 03/16/15 LORazepam [Ativan (*)] 1 mg PO TID PRN #14 tab 01/21/16 valACYclovir [Valtrex (*)] 500 mg PO DAILY 04/03/16 Dihydroergotamine Mesylate 1 ml NS 01/27/17 [Migranal] Indomethacin 05/16/17 Medical Decision Making ED Course/Re-evaluation: 9:24 a.m.: I reviewed the patient's medical records. She requests DHE in addition to other medications. Will hold on imaging studies at this time. Care of patient under supervision of secondary supervising physician Dr Castrejon . 9:50 a.m.: Patient has been given Haldol, Toradol, Decadron. Reglan was canceled. Awaiting DHE. She is complaining of acute anxiety at this time requesting benzodiazepine. 10:50 a.m.: Informed by the that he needs to leave the ER for period of time has an o'clock appointment but notes that the patient is sleeping. He is able to return at approximately noon to pick her up. Will allow the patient to rest and re-evaluate while she is in the ER. 11:30 a.m.: Re-evaluation, patient still resting. She feels ready to be discharged once her arrives. - Data Points Medications Given: Discontinued Medications Dexamethasone (Decadron Injection) 8 mg IVP EDNOW ONE Stop: 05/16/17 09:26 Last Admin: 05/16/17 09:36 Dose: 8 mg Dihydroergotamine Mesylate (Dhe) 1 mg IVP EDNOW ONE Stop: 05/16/17 09:26 Last Admin: 05/16/17 10:23 Dose: 1 mg Haloperidol Lactate (Haldol Injection) 2.5 mg IVP EDNOW ONE Stop: 05/16/17 09:26 Last Admin: 05/16/17 09:36 Dose: 2.5 mg Sodium Chloride (Ns) 1,000 mls @ 0 mls/hr IV ONCE ONE PRN Reason: Wide Open Stop: 05/16/17 09:27 Last Admin: 05/16/17 09:36 Dose: 1,000 mls Ketorolac Tromethamine (Toradol) 15 mg IVP/IM EDNOW ONE Stop: 05/16/17 09:26 Last Admin: 05/16/17 09:37 Dose: 15 mg Lorazepam (Ativan Injection) 1 mg IVP EDNOW ONE Stop: 05/16/17 10:01 Last Admin: 05/16/17 10:06 Dose: 1 mg Metoclopramide HCl (Reglan Injection) 10 mg IVP EDNOW ONE Stop: 05/16/17 09:26 Last Admin: 05/16/17 09:38 Dose: Not Given Departure - Departure Disposition: Home, Routine, Self-Care Clinical Impression: Migraine headache Qualifiers: Migraine type: unspecified Status migrainosus presence: without status migrainosus Intractability: not intractable Qualified Code(s): G43.909 - Migraine, unspecified, not intractable, without status migrainosus Condition: Good Instructions: Migraine Headache (ED) Additional Instructions: THANK YOU FOR YOUR VISIT TO OUR EMERGENCY DEPARTMENT (ED). YOU WERE SEEN TODAY BECAUSE OF A HEADACHE. YOU MAY HAVE HAD LAB TESTS, A CT SCAN, MRI OR EVEN A LUMBAR PUNCTURE (COMMONLY REFERRED TO A SPINAL TAP). WE CANNOT ALWAYS FIND THE EXACT CAUSE OF YOUR SYMPTOMS DURING YOUR VISIT TO THE ED. RETURN TO THE ED IMMEDIATELY IF YOUR HEADACHE WORSENS, IF YOU DEVELOP A FEVER, NECK PAIN OR NECK STIFFNESS, OR IF YOU BECOME CONFUSED OR ABNORMALLY DROWSY. Referrals: Esther Hernandez MD [Primary Care Provider] - As per Instructions Follow-up, with your neurologist in [place] in 2-3 days [Other] - As per Instructions
[2017-05-16] MEDS ORDERED: NS 1,000 ML IV ONE (09:26)
[2017-05-16] MEDS ORDERED: LORazepam 2 MG/ML INJ IVP ONE (10:00)
[2017-05-16 11:27] VITALS: RESP 14; O2SAT 96
[2017-05-16 12:32] VITALS: BP 151/82; PULSE 74
== END 2017-05-16 12:30 | disposition home or self-care (01) ==
DX: G43.909 Migraine, unspecified, not intractable, without status migrainosus (principal)
CPT/HCPCS: 96374; J1100; J1110; J1630; J1885; J2060; J2765

== ENCOUNTER 2017-07-29 17:11 | Emergency (ER) | payer OTHER ==
[2017-07-29] MEDS ORDERED: DEXAMETHASONE 10 MG/ML VIAL IVP ONE (17:30)
[2017-07-29] MEDS ORDERED: DIHYDROERGOTAMINE 1 MG/ML AMP IVP ONE (17:30)
[2017-07-29] MEDS ORDERED: DIAZEPAM 5 MG/ML 1 ML SYR IVP ONE (17:31)
[2017-07-29] MEDS ORDERED: KETOROLAC 30 MG/1 ML SDV IVP ONE (17:31)
[2017-07-29] MEDS ORDERED: NS 1,000 ML IV ONE (17:32)
--- NOTE | 2017-07-29 17:35 | EDPHY ---
H & P Stated Complaint: Typical migraine x 2 days;change in meds over past 10 days Time Seen by Provider: 07/29/17 17:23 HPI/ROS: CHIEF COMPLAINT: Migraine HISTORY OF PRESENT ILLNESS: The patient is a 42-year-old female with a history of frequent migraines who is followed by Dr. Handley from Neurology as well as the [facility]. She takes verapamil daily but states that it does not seem to be working as well as when she was taking indomethacin. She has had of migraine gradually escalating over the last 4 days. No fever. No trauma. She states that this is typical for her. She has taken her migraine all as well as Vicodin and promethazine and Benadryl without significant relief. The she is here requesting a migraine cocktail which includes dexamethasone, dihydroergotamine, a muscle relaxant and Toradol. She states that this has worked for her in the past. She does not wish to have workup or lab work done. She does not have any focal weakness or deficits. She is photophobic and nauseous but has not vomited. REVIEW OF SYSTEMS: Constitutional: denies: chills, fever, recent illness, recent injury EENTM: denies: blurred vision, double vision, nose congestion Respiratory: denies: cough, shortness of breath Cardiac: denies: chest pain, irregular heart rate, lightheadedness, palpitations Gastrointestinal/Abdominal: denies: abdominal pain, diarrhea, nausea, vomiting, blood streaked stools Genitourinary: denies: dysuria, frequency, hematuria, pain Musculoskeletal: denies: joint pain, muscle pain Skin: denies: lesions, rash, jaundice, bruising Neurological: See HPI denies: numbness, paresthesia, tingling, dizziness, weakness Hematologic/Lymphatic: denies: blood clots, easy bleeding, easy bruising Immunologic/allergic: denies: HIV/AIDS, transplant EXAM: GENERAL: Well-appearing, well-nourished and in no acute distress. HEAD: Atraumatic, normocephalic. EYES: Pupils equal round and reactive to light, extraocular movements intact, sclera anicteric, conjunctiva are normal. ENT: TMs normal, nares patent, oropharynx clear without exudates. Moist mucous membranes. NECK: Normal range of motion, supple without lymphadenopathy or JVD. LUNGS: Breath sounds clear to auscultation bilaterally and equal. No wheezes rales or rhonchi. HEART: Regular rate and rhythm without murmurs, rubs or gallops. ABDOMEN: Soft, nontender, normoactive bowel sounds. No guarding, no rebound. No masses appreciated. BACK: No CVA tenderness, no spinal tenderness, step-offs or deformities EXTREMITIES: Normal range of motion, no pitting or edema. No clubbing or cyanosis. NEUROLOGICAL: Cranial nerves II through XII grossly intact. Normal speech, normal gait. 5/5 strength, normal movement in all extremities, normal sensation PSYCH: Normal mood, normal affect. SKIN: Warm, dry, normal turgor, no visible rashes or lesions. Source: Patient, Family, Old records Exam Limitations: No limitations - Personal History LMP (Females 10-55): Extended Cycle BCP/Inj Current Tetanus Diphtheria and Acellular Pertussis (TDAP): Yes Tetanus Vaccine Date: <10 years - Medical/Surgical History Hx Asthma: No Hx Chronic Respiratory Disease: No Hx Diabetes: No Hx Cardiac Disease: No Hx Renal Disease: No Hx Cirrhosis: No Hx Alcoholism: No Hx HIV/AIDS: No Hx Splenectomy or Spleen Trauma: No Other PMH: MS;Migraines; depression, MS - Family History Significant Family History: No pertinent family hx - Social History Smoking Status: Former smoker Alcohol Use: Sober Drug Use: None Constitutional: Initial Vital Signs Temperature (C) 36.6 C 07/29/17 17:17 Heart Rate 93 07/29/17 17:17 Respiratory Rate 16 07/29/17 17:17 Blood Pressure 131/53 H 07/29/17 17:17 O2 Sat (%) 98 07/29/17 17:17 O2 Delivery Mode Room Air Allergies/Adverse Reactions: metoclopramide HCl [From Reglan] Allergy (Intermediate, Verified 07/29/17 17:20) extreme anxiety Sulfa (Sulfonamide Antibiotics) Allergy (Intermediate, Verified 07/29/17 17:20) Hives oxycodone [From Percocet] Allergy (Mild, Verified 07/29/17 17:20) n/v acetaminophen [From Percocet] Allergy (Verified 07/29/17 17:20) Home Medications: Medication Instructions Recorded Baclofen [Baclofen 10 mg (*)] 10 mg PO TID 04/17/14 Gabapentin 600 mg PO TID 04/17/14 Topiramate [Topamax] 250 mg PO HS 04/17/14 tiZANidine HCL [Zanaflex] 4 mg PO HS 04/17/14 Norethindrone AC-Eth Estradiol 1 tab PO DAILY 03/16/15 [Norethind-Eth Estrad 1-0.02 mg] Promethazine HCl 25 - 50 mg PO PRN PRN 03/16/15 Sertraline HCl [Zoloft 100mg (*)] 200 mg PO DAILY 03/16/15 Dihydroergotamine Mesylate 1 ml NS 01/27/17 [Migranal] Verapamil [Calan 80MG (*)] 80 mg PO 07/29/17 Medical Decision Making ED Course/Re-evaluation: 7:20 p.m. the patient states that she is feeling a little bit better but not completely. She has resigned herself to going home and would like to simply sleep hard and is requesting a take-home Valium. We discussed other options and agreed to try ketamine. She states that last time when she got Haldol made her extremely anxious. 8:15 p.m. the patient states that she does feel significantly better after the ketamine. She is eager to go home. She is requesting a take-home Valium. She will speak with her neurologist on Monday bowel alternatives. Differential Diagnosis: Partial list of the Differential diagnosis considered include but were not limited to; migraine, seizure, and although unlikely based on the history and physical exam, I also considered tumor, vasculitis, dissection, medication reaction. I discussed these differential diagnoses and the plan with the patient as well as the usual and expected course. The patient understands that the diagnosis is provisional and that in medicine we are not always correct and that further workup is often warranted. Usual and customary warnings were given. All of the patient's questions were answered. The patient was instructed to return to the emergency department should the symptoms at all worsen or return, otherwise to followup with the physician as we discussed. - Data Points Medications Given: Discontinued Medications Dexamethasone (Decadron Injection) 10 mg IVP EDNOW ONE Stop: 07/29/17 17:31 Last Admin: 07/29/17 17:58 Dose: 10 mg Diazepam (Valium) 2.5 mg IVP EDNOW ONE Stop: 07/29/17 17:32 Last Admin: 07/29/17 17:59 Dose: 2.5 mg Diazepam (Valium 5 Mg Prepack#4) 1 btl TAKEHOME EDNOW ONE Stop: 07/29/17 19:38 Last Admin: 07/29/17 19:43 Dose: 1 btl Dihydroergotamine Mesylate (Dhe) 1 mg IVP EDNOW ONE Stop: 07/29/17 17:31 Last Admin: 07/29/17 17:59 Dose: 1 mg Diphenhydramine HCl (Benadryl Injection) 25 mg IVP EDNOW ONE Stop: 07/29/17 18:03 Last Admin: 07/29/17 18:13 Dose: 25 mg Sodium Chloride (Ns) 1,000 mls @ 0 mls/hr IV EDNOW ONE; Wide Open PRN Reason: Protocol Stop: 07/29/17 17:33 Last Admin: 07/29/17 17:43 Dose: 1,000 mls Ketamine HCl (Ketamine) 15 mg 0.2 mg/kg (15 mg) IVP EDNOW ONE Stop: 07/29/17 19:36 Last Admin: 07/29/17 19:43 Dose: 15 mg Ketorolac Tromethamine (Toradol) 30 mg IVP EDNOW ONE Stop: 07/29/17 17:32 Last Admin: 07/29/17 17:58 Dose: 30 mg Metoclopramide HCl (Reglan Injection) 10 mg IVP EDNOW ONE Stop: 07/29/17 18:03 Last Admin: 07/29/17 18:13 Dose: Not Given Ondansetron HCl (Zofran) 4 mg IVP EDNOW ONE Stop: 07/29/17 18:13 Last Admin: 07/29/17 18:14 Dose: 4 mg Promethazine HCl (Phenergan) 12.5 mg IVP ONCE ONE Stop: 07/29/17 18:47 Last Admin: 07/29/17 18:48 Dose: 12.5 mg Departure - Departure Disposition: Home, Routine, Self-Care Clinical Impression: Migraine Qualifiers: Migraine type: without aura Status migrainosus presence: without status migrainosus Intractability: not intractable Qualified Code(s): G43.009 - Migraine without aura, not intractable, without status migrainosus Condition: Fair Instructions: Diazepam (By mouth), Migraine Headache (ED) Referrals: Opal Castro MD [Primary Care Provider] - As per Instructions
[2017-07-29] MEDS ORDERED: METOCLOPRAMIDE 10 MG/2 ML VIAL IVP ONE (18:02)
[2017-07-29] MEDS ORDERED: ONDANSETRON 4 MG/2 ML VIAL ONE (18:10)
[2017-07-29] MEDS ORDERED: ONDANSETRON 4 MG/2 ML VIAL IVP ONE (18:12)
[2017-07-29] MEDS ORDERED: PROMETHAZINE HCL 25 MG/ML INJ ONE (18:45)
[2017-07-29] MEDS ORDERED: PROMETHAZINE HCL 25 MG/ML INJ IVP ONE (18:46)
[2017-07-29] MEDS ORDERED: KETAMINE 200 MG/20 ML VIAL IVP ONE (19:35)
[2017-07-29] MEDS ORDERED: DIAZEPAM 5 MG PREPACK#4 BTL TAKEHOME ONE (19:37)
[2017-07-29 20:38] VITALS: BP 114/74
== END 2017-07-29 20:36 | disposition home or self-care (01) ==
DX: G43.909 Migraine, unspecified, not intractable, without status migrainosus (principal); E86.9 Volume depletion, unspecified; Z87.891 Personal history of nicotine dependence
CPT/HCPCS: 96374; J1100; J1110; J1200; J1885; J2405; J2550; J2765; J3360

== ENCOUNTER 2017-08-04 11:10 | Emergency (ER) | payer OTHER ==
--- NOTE | 2017-08-04 11:57 | EDPHY ---
H & P Time Seen by Provider: 08/04/17 11:54 HPI/ROS: Chief complaint. Migraine HPI. 42-year-old female presents emergency department with typical migraine headache. She was recently seen in our emergency department for same. She has frequent headaches. She has no visual symptoms at onset but does have photophobia. She has nausea. Headache is otherwise typical. No recent head injury. No recent fever. No focal weakness or paresthesias. Patient has tried her usual medications without relief. ROS Constitutional. no fever/chills, no weakness Eyes. no problems with vision ENT. no sore throat, no nasal drainage Cardiovascular. no chest pain Respiratory. no shortness of breath, no cough Abdominal. no abdominal pain, no nausea/vomiting, no diarrhea . no problems urinating MS. no calf pain/swelling, no neck/back pain, no joint pain Skin. no rash Lymph. no swollen glands Neuro. Headache Past Medical/Surgical History: Migraine headache, depression, MS Social History: , nonsmoker, no alcohol Smoking Status: Former smoker Physical Exam: General Appearance: Well-developed female mild distress vital signs are stable Eyes: Pupils equal and round no pallor or injection. ENT, Mouth: Mucous membranes are moist. Respiratory: There are no retractions, lungs are clear to auscultation. Cardiovascular: Regular rate and rhythm. Gastrointestinal: Abdomen is soft and nontender, no masses, bowel sounds normal. Neurological: Awake and alert, sensory and motor exams grossly normal. Speech is normal. Cranial nerves are normal. There is no pronator drift. Finger-to- nose intact. Skin: Warm and dry, no rashes. Musculoskeletal: Neck is supple nontender. Extremities symmetrical, full range of motion. Psychiatric: Patient is oriented X 3, there is no agitation. Constitutional: Initial Vital Signs Temperature (C) 37.1 C 08/04/17 11:22 Heart Rate 85 08/04/17 11:22 Respiratory Rate 18 08/04/17 11:22 Blood Pressure 122/69 H 08/04/17 11:22 O2 Sat (%) 97 08/04/17 11:22 O2 Delivery Mode Room Air Allergies/Adverse Reactions: metoclopramide HCl [From Reglan] Allergy (Intermediate, Verified 07/29/17 17:20) extreme anxiety Sulfa (Sulfonamide Antibiotics) Allergy (Intermediate, Verified 07/29/17 17:20) Hives oxycodone [From Percocet] Allergy (Mild, Verified 07/29/17 17:20) n/v acetaminophen [From Percocet] Allergy (Verified 07/29/17 17:20) Home Medications: Medication Instructions Recorded Baclofen [Baclofen 10 mg (*)] 10 mg PO TID 04/17/14 Gabapentin 600 mg PO TID 04/17/14 Topiramate [Topamax] 250 mg PO HS 04/17/14 tiZANidine HCL [Zanaflex] 4 mg PO HS 04/17/14 Norethindrone AC-Eth Estradiol 1 tab PO DAILY 03/16/15 [Norethind-Eth Estrad 1-0.02 mg] Promethazine HCl 25 - 50 mg PO PRN PRN 03/16/15 Sertraline HCl [Zoloft 100mg (*)] 200 mg PO DAILY 03/16/15 Dihydroergotamine Mesylate 1 ml NS 01/27/17 [Migranal] Indomethacin 08/04/17 Promethazine HCl [Phenergan 25mg 25 mg PO Q4-6PRN PRN #10 tab 08/04/17 (*)] methylPREDNISolone [Medrol Dose 1 each PO AD #1 ea 08/04/17 Humberot] Medical Decision Making Procedures: IV normal saline. DHE 1 mg IV, Benadryl 25 mg IV, ketamine 15 mg IV, Toradol 30 mg IV, Reglan 10 mg IV ED Course/Re-evaluation: Serial evaluations patient is improving. She remains medically neurologically intact. I consulted and discussed case with patient's regular neurologist Dr. Ariel handley ([phone]) who recommends IV steroid and I told him that we had already given the patient 10 mg of Decadron IV and he is fine with that. He recommends Medrol Dosepak. He recommends Phenergan prescription and regular Phenergan. He will see the patient in the office. Otherwise he is comfortable with treatment. I have discussed this with the patient and her . They expressed understanding and agreement Differential Diagnosis: I considered migraine, other types headaches comma MS exacerbation. No evidence for intracranial bleeding or CVA. - Data Points Medications Given: Discontinued Medications Dexamethasone (Decadron Injection) 10 mg IVP EDNOW ONE Stop: 08/04/17 12:14 Last Admin: 08/04/17 12:48 Dose: 10 mg Dihydroergotamine Mesylate (Dhe) 1 mg IVP EDNOW ONE Stop: 08/04/17 12:17 Last Admin: 08/04/17 13:07 Dose: 1 mg Diphenhydramine HCl (Benadryl Injection) 25 mg IVP EDNOW ONE Stop: 08/04/17 12:14 Last Admin: 08/04/17 12:47 Dose: 25 mg Sodium Chloride (Ns) 1,000 mls @ 0 mls/hr IV EDNOW ONE; Wide Open PRN Reason: Protocol Stop: 08/04/17 12:17 Last Admin: 08/04/17 12:48 Dose: 1,000 mls Ketamine HCl (Ketamine) 15 mg IVP EDNOW ONE Stop: 08/04/17 12:16 Last Admin: 08/04/17 13:09 Dose: 15 mg Ketorolac Tromethamine (Toradol) 30 mg IVP EDNOW ONE Stop: 08/04/17 12:14 Last Admin: 08/04/17 12:48 Dose: 30 mg Promethazine HCl (Phenergan) 12.5 mg IVP EDNOW ONE Stop: 08/04/17 12:16 Last Admin: 08/04/17 12:47 Dose: 12.5 mg Promethazine HCl (Phenergan) 12.5 mg IVP EDNOW ONE Stop: 08/04/17 13:58 Last Admin: 08/04/17 14:03 Dose: 12.5 mg Departure - Departure Disposition: Home, Routine, Self-Care Clinical Impression: Migraine headache Qualifiers: Migraine type: unspecified Status migrainosus presence: without status migrainosus Intractability: not intractable Qualified Code(s): G43.909 - Migraine, unspecified, not intractable, without status migrainosus Condition: Good Instructions: Migraine Headache (ED) Additional Instructions: Begin Medrol Dosepak tomorrow. This is a steroid that was recommended by Dr. Handley today. Phenergan as needed for nausea and at bedtime next 3 nights. Return for worsening symptoms. Follow up with Dr. Handley on Monday Referrals: Opal Castro MD [Non Staff Provider (MD)] - As per Instructions Prescriptions: methylPREDNISolone [Medrol Dose Humberto] 1 each PO AD #1 ea Promethazine HCl [Phenergan 25mg (*)] 25 mg PO Q4-6PRN PRN #10 tab PRN Reason: Nausea/Vomiting, Use 1st
[2017-08-04] MEDS ORDERED: DEXAMETHASONE 10 MG/ML VIAL IVP ONE (12:13)
[2017-08-04] MEDS ORDERED: KETOROLAC 30 MG/1 ML SDV IVP ONE (12:13)
[2017-08-04] MEDS ORDERED: KETAMINE 200 MG/20 ML VIAL IVP ONE (12:15)
[2017-08-04] MEDS ORDERED: PROMETHAZINE HCL 25 MG/ML INJ IVP ONE ×2 (12:15→13:57)
[2017-08-04] MEDS ORDERED: DIHYDROERGOTAMINE 1 MG/ML AMP IVP ONE (12:16)
[2017-08-04] MEDS ORDERED: NS 1,000 ML IV ONE (12:16)
[2017-08-04 14:54] VITALS: BP 139/79
== END 2017-08-04 14:52 | disposition home or self-care (01) ==
DX: G43.909 Migraine, unspecified, not intractable, without status migrainosus (principal); E86.9 Volume depletion, unspecified; Z87.891 Personal history of nicotine dependence
CPT/HCPCS: 96374; J1100; J1110; J1200; J1885; J2550

== ENCOUNTER → 2017-10-10 | Outpatient (CLI) | payer OTHER ==
[~2017-10-10] MED LIST changes: +GADOBUTROL 10 ML VIAL IVP ONE; -IOPAMIDOL (ISOVUE-300) 100 ML BTL ONE
== END ==
LOC: FIMAGING 12:39
PROVIDERS: ATTEND Psychiatry & Neurology Neurology
DX: G35 Multiple sclerosis (principal)
CPT/HCPCS: A9585

== ENCOUNTER → 2017-12-11 | Outpatient (CLI) | payer OTHER | LOC: BMCIMAGING 17:15 | PROVIDERS: ATTEND Family Medicine | DX: M79.672 Pain in left foot (principal) ==

== ENCOUNTER → 2018-04-11 | Outpatient (CLI) | payer OTHER | LOC: FIMAGING 12:55 | PROVIDERS: ATTEND Obstetrics & Gynecology | DX: Z12.31 Encounter for screening mammogram for malignant neoplasm of breast (principal) ==